=== PATIENT | female | born 1955 ===

== ENCOUNTER 2024-04-24 12:05 | Outpatient (AMB) | payer OTHER, MEDICAID, SELFPAY ==
--- NOTE | 2024-04-24 12:14 | A.OFFPC_ITS ---
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 Allergies No Known Allergies Allergy (Verified 04/24/24 12:19) Medication List - Last Reconciled 04/24/24 by Tejinder Lara MD albuterol sulfate 90 mcg/actuation (Ventolin HFA) 2 puffs inhalation Q4-6H PRN albuterol sulfate 2.5 mg inhalation Q6H atorvastatin 80 mg PO QPM blood sugar diagnostic (Sprout RouteTouch Verio test strips) As directed insulin detemir U-100 (Levemir FlexPen) 40 units subcut DAILY lisinopril 20 mg PO BID metformin 1,000 mg PO BID metoprolol tartrate 50 mg PO BID pen needle, diabetic (BD Ultra-Fine Mini Pen Needle) As directed Tobacco use date assessed: 04/24/24 Fall risk assessment: No Falls in past year Last assessed Fall Risk: 04/24/24 Dental Screening Dental Screen Date: 04/24/24 Did you have a dental visit in the last 12 months?: Yes Did you have a dental problem in the last 6 months where you did not have access to dental care?: No Was dental information given to patient?: Patient has dentist HPI VOLUNTEER MANAGER Annual PE HPI Details Patient is 68-year-old female came in today for establish care visit She moved from [place] where she lived for 40 years Patient [place] [facility] [place] Patient is insulin-dependent diabetic for years She is currently taking long-acting insulin 40 units once a day Patient has not been monitoring her blood sugar as she does not have glucometer We will send that for her Lab order placed to be done fasting Lipid disorder: She is on atorvastatin 80 mg, no side effects Hypertension: Patient is on lisinopril 20 mg once a day and metoprolol 50 mg b.i.d. Blood pressure is well-controlled Patient is due for colonoscopy, she had colonoscopy 5 years ago there was a polyp found It was done in [place] She just had mammogram done last month OBGYN is located with [facility] Eye exam was 6 months ago She will return in 3 months for physical exam. [facility] Social History Housing: House Patient Tobacco Use Status: Never used Tobacco e-Cigarette/Vaping Use: Never Used service: No Current occupational status: unemployed Cognitive needs: No Hearing needs: No Vision needs: Yes Questionnaire PHQ-9 Over the last 2 weeks, how often have you been bothered by any of the following problems? 1. Little interest or pleasure in doing things: not at all 2. Feeling down, depressed, or hopeless: not at all 3. Trouble falling or staying asleep, or sleeping too much: not at all 4. Feeling tired or having little energy: not at all 5. Poor appetite or overeating: not at all 6. Feeling bad about yourself - or that you are a failure or have let yourself or your family down: not at all 7. Trouble concentrating on things, such as reading the newspaper or watching television: not at all 8. Moving or speaking so slowly that other people could have noticed. Or the opposite - being so fidgety or restless that you have been moving around a lot more than usual: not at all 9. Thoughts that you would be better off or of hurting yourself in some way: not at all Total score: 0 Depression Screening Interpretation: Negative Depression Screening Done: Yes 74391 - PHQ-9 Billing: Yes Source: Developed by Drs. Martin Harris, Brook Cunningham, Angel Delarosa and colleagues, with an educational yessica from [employer]. Review of Systems Const Denies chills, Denies fever(s) and Denies headache(s) Eyes Denies blurry vision ENT Denies headache(s), Denies nasal discharge, Denies nasal obstruction, Denies odynophagia and Denies sinus pain Card Denies chest pain at rest and Denies chest pain with activity Resp Denies cough and Denies hemoptysis GI Denies diarrhea, Denies odynophagia, Denies vomiting and Denies hematemesis Reports as per HPI Musc Denies abnormal gait Skin/Breast Reports as per HPI Neuro Denies Neuro-related abnormal movements, Denies Abnormal speech present, Denies abnormal gait, Denies headache(s) and Denies Sensory deficit (Neuro) Psych Denies mood swings and Denies paranoia Endo Reports as per HPI Tres/Lymph Reports as per HPI Aller/Immun Reports as per HPI Physical exam (Primary Care) Vital Signs: Last Vital Signs Pulse 68 04/24/24 12:15 BP 122/74 04/24/24 12:15 Pulse Ox 94 04/24/24 12:15 Oxygen Delivery Method Room Air 04/24/24 12:15 BMI result Body Mass Index 28.3 Tobacco/Smoking Status: Tobacco use Status Tobacco use date assessed 04/24/24 04/24/24 12:19 Patient Tobacco Use Status Never used Tobacco 04/24/24 12:19 e-Cigarette/Vaping Use Never Used 04/24/24 12:19 Depression Screening Interpretation: Negative Const General: cooperative, comfortable and no acute distress Orientation/consciousness: patient oriented x3 HENMT Head: Yes normocephalic and Yes atraumatic Eyes General: appearance normal, both eyes and all related structures Pupils: Equal, round and reactive pupils present EOM: EOMs intact bilaterally Neck Neck: Yes supple and No lymphadenopathy Thyroid: Thyroid normal Lymphatic: no lymphadenopathy noted Resp Effort & Inspection: normal respiratory effort and able to speak in complete sentences Auscultation: clear to auscultation bilaterally Cardio Heart sounds: S1 normal heart sound present and S2 normal heart sound present GI Palpation (GI): Soft to palpation and nontender Auscultation: normal bowel sounds General: Yes no CVA tenderness Back/Spine/Pelvis Back: no CVA tenderness Skin General skin exam: elasticity normal and turgor normal Neuro General: patient oriented x3 and gait normal Cranial nerves: Yes Equal, round and reactive pupils present Speech: No Abnormal speech present Sensory Exam: No Sensory deficit (Neuro) Coordination: tandem gait normal and Romberg test negative Extrem General: Yes normal exam except as noted and No edema Coding Level of Care Code New Pt Level 5 (23008) Diagnoses Establishing care with new doctor, encounter for Z76. Type 1 diabetes mellitus with other specified complication E10.69 Diabetes mellitus complication status: with other specified complication Lipid disorder E78.9 Hypertension, essential I10 Overweight (BMI 25.0-29.9) E66.3 Colon cancer screening Z12.11 Assessment & Plan Assessment & Plan (1) Establishing care with new doctor, encounter for: Code(s): Z76.89 - Persons encountering health services in other specified circumstances Category: Medical (2) Insulin dependent type 1 diabetes mellitus: Code(s): E10.9 - Type 1 diabetes mellitus without complications Category: Medical Qualifiers: Diabetes mellitus complication status: with other specified complication Qualified Code(s): E10.69 - Type 1 diabetes mellitus with other specified complication (3) Lipid disorder: Code(s): E78.9 - Disorder of lipoprotein metabolism, unspecified Category: Medical (4) Hypertension, essential: Code(s): I10 - Essential (primary) hypertension Category: Medical (5) Overweight (BMI 25.0-29.9): Code(s): E66.3 - Overweight Category: Medical (6) Colon cancer screening: Code(s): Z12.11 - Encounter for screening for malignant neoplasm of colon Category: Medical Plan Patient is 68-year-old female came in today for establish care visit Patient is here with her significant other friend, all history taken in front of friend which is also helping with translation She moved from [place] where she lived for 40 years Patient fell in [place] [facility] [place] Patient is insulin-dependent diabetic for years She is currently taking long-acting insulin 40 units once a day Patient has not been monitoring her blood sugar as she does not have glucometer We will send that for her Lab order placed to be done fasting Lipid disorder: She is on atorvastatin 80 mg, no side effects Hypertension: Patient is on lisinopril 20 mg once a day and metoprolol 50 mg b.i.d. Blood pressure is well-controlled Patient is due for colonoscopy, she had colonoscopy 5 years ago there was a polyp found It was done in [place] She just had mammogram done last month OBGYN is located with [facility] Eye exam was 6 months ago She will return in 3 months for physical exam. 60 minute appointment, [id number] with the patient, labs, medications, charting Coordination of care Orders: Orders Microalbumin, Random (w Creat) Today E10.9 - Type 1 diabetes mellitus without complications, E78.9 - Disorder of lipoprotein metabolism, unspecified, I10 - Essential (primary) hypertension, Z76.89 - Persons encountering health services in other specified circumstances Comprehensive [place]. Panel Fast Today E10.9 - Type 1 diabetes mellitus without complications, E78.9 - Disorder of lipoprotein metabolism, unspecified, I10 - Essential (primary) hypertension, Z76.89 - Persons encountering health services in other specified circumstances Vitamin D 25-OH (D2 and D3) Today E10.9 - Type 1 diabetes mellitus without complications, E78.9 - Disorder of lipoprotein metabolism, unspecified, I10 - Essential (primary) hypertension, Z76.89 - Persons encountering health services in other specified circumstances TSH reflex Free T4 Today E10.9 - Type 1 diabetes mellitus without complications, E78.9 - Disorder of lipoprotein metabolism, unspecified, I10 - Essential (primary) hypertension, Z76.89 - Persons encountering health services in other specified circumstances Hemoglobin A1c Today E10.9 - Type 1 diabetes mellitus without complications, E78.9 - Disorder of lipoprotein metabolism, unspecified, I10 - Essential (primary) hypertension, Z76.89 - Persons encountering health services in other specified circumstances Complete Blood Count Auto Diff Today E10.9 - Type 1 diabetes mellitus without complications, E78.9 - Disorder of lipoprotein metabolism, unspecified, I10 - Essential (primary) hypertension, Z76.89 - Persons encountering health services in other specified circumstances Lipid Panel Today E10.9 - Type 1 diabetes mellitus without complications, E78.9 - Disorder of lipoprotein metabolism, unspecified, I10 - Essential (primary) hypertension, Z76.89 - Persons encountering health services in other specified circumstances UA CC w/rflx Micro + Cult Today E10.9 - Type 1 diabetes mellitus without complications, E78.9 - Disorder of lipoprotein metabolism, unspecified, I10 - Essential (primary) hypertension, Z76.89 - Persons encountering health services in other specified circumstances Referrals Gastroenterology Referral Z12.11 - Encounter for screening for malignant neoplasm of colon Medications: New atorvastatin 80 mg PO QPM 90 tabs 0RF metoprolol tartrate 50 mg PO BID 180 tabs 0RF 90 days insulin detemir U-100 (Levemir FlexPen) 40 units (0.4 mL) subcut DAILY 36 mL 0RF 90 days lisinopril 20 mg PO BID 180 tabs 0RF 90 days metformin 1,000 mg PO BID 180 tabs 0RF 90 days
[2024-04-24 12:15] VITALS: BP 122/74; PULSE 68; O2SAT 94; BMI 28.3
== END 2024-04-24 12:49 | disposition home or self-care (01) ==
PROVIDERS: PCP Internal Medicine; Visit Provider Internal Medicine
DX: Z76.89 Persons encountering health services in other specified circumstances (principal); E10.69 Type 1 diabetes mellitus with other specified complication; E78.9 Disorder of lipoprotein metabolism, unspecified; I10 Essential (primary) hypertension; E66.3 Overweight; Z12.11 Encounter for screening for malignant neoplasm of colon

== ENCOUNTER → 2024-04-24 12:05 | Outpatient (BNVA) | payer OTHER, MEDICAID, SELFPAY | PROVIDERS: PCP Internal Medicine; Visit Provider Internal Medicine ==

== ENCOUNTER 2024-04-24 12:50 | Outpatient (REF) | payer OTHER, SELFPAY ==
[2024-04-24 16:23] LABS: MANUAL DIFF FLAG NO
[2024-04-24 16:34] LABS: Basophils Percent Auto 0.5 % (0-2); Eosinophils Absolute Auto 0.1 X10*3/uL (0.0-0.4); Hematocrit 40.1 % (37.0-47.0); Hemoglobin 12.9 g/dl (12.0-16.0); Imm Gran Abs Auto 0.01 X10*3/uL (0.00-0.03); Imm Gran Pct Auto 0.2 % (0.0-0.4); Lymphocytes Absolute Auto 1.6 X10*3/uL (1.2-4.9); Lymphocytes Percent Auto 27.2 % (20-40); Mean Corpuscular HGB Conc 32.2 g/dl (31.0-35.0); Mean Corpuscular Hemoglobin 28.5 pg (27.0-33.0); Mean Corpuscular Volume 88.5 fL (80.0-98.0); Mean Platelet Volume 10.5 fL (9.4-12.3); Monocytes Absolute Auto 0.5 X10*3/uL (0.1-1.2); Monocytes Percent Auto 8.3 % (2-11); Neutrophils Absolute Auto 3.6 x10*3/uL (2.0-8.3); Neutrophils Percent Auto 61.8 % (45-73); Platelet Count 303 X10*3/uL (160-400); Red Blood Count 4.53 X10*6/uL (4.20-5.50); White Blood Count 5.9 X10*3/uL (4.8-10.8)
[2024-04-24 16:47] LABS: Alanine Aminotransferase 25 U/L (0-31); Albumin Level 4.1 g/dL (3.5-5.0); Alkaline Phosphatase 93 U/L (39-117); Anion Gap 13 (12-20); Aspartate Amino Transferase 21 U/L (5-31); Bilirubin Total 0.6 mg/dL (0.0-1.0); Blood Urea Nitrogen 10 mg/dL (9-16); Calcium 9.9 mg/dL (8.4-10.2); Carbon Dioxide 28 mmol/L (22-29); Chloride 103 mmol/L (96-108); Cholesterol 283 mg/dL (<200); Estimated Glomerular Filt Rate > 60; Glucose Fasting 151 mg/dL (60-99); HDL Cholesterol 50 mg/dL (>40); LDL Cholesterol Calculated 182 mg/dL (<100); Potassium 4.5 mmol/L (3.3-5.1); Sodium 139 mmol/L (135-145); Total Protein 7.9 g/dL (6.5-8.0); Triglycerides 257 mg/dL (<150)
[2024-04-24 16:48] LABS: Appearance Urine Clear; Color Urine Yellow; Glucose Urine UA Negative (Negative); Leukocyte Esterase Urine Negative (Negative); Nitrite Urine Negative (Negative); Specific Gravity - Urine 1.015 (1.005-1.025); UMIC TRIGGER UACC YES; Urine Blood Trace (Negative); Urine Ketones Negative (Negative); Urine Protein Negative (Neg-Trace)
[2024-04-24 16:55] LABS: Estimated Average Glucose 163 mg/dL; Hemoglobin A1c % 7.3 % (<6.0); Total Hemoglobin (HGBA1C) 3322.2871 umol/L
[2024-04-24 16:55] LABS: Bacteria Urine None Seen (None Seen); Hyaline Casts Urine 0-2 /LPF (0-2); Squamous Epithelial Cell Urine 0-2 /HPF (0-2); WBC Urine 0-5 /HPF (0-5)
[2024-04-24 17:00] LABS: TSH reflex Free T4 0.75 uIU/mL (0.32-4.0)
[2024-04-24 17:49] LABS: Creatinine Urine 118.96 mg/dL
[2024-04-28 13:08] LABS: Vitamin D 25-OH, D2 <4 ng/mL; Vitamin D 25-OH, D3 28 ng/mL; Vitamin D 25-OH, Total 28 ng/mL (30-100)
== END 2024-04-24 12:51 | disposition home or self-care (01) ==
LOC: HO.HMGCLDS 12:50
PROVIDERS: PCP Internal Medicine; Visit Provider Internal Medicine
DX: E10.9 Type 1 diabetes mellitus without complications (principal); E78.9 Disorder of lipoprotein metabolism, unspecified; I10 Essential (primary) hypertension; Z76.89 Persons encountering health services in other specified circumstances
CPT/HCPCS: 36415; 80053; 80061; 81001; 82043; 82306; 82570; 83036; 84443; 85025

== ENCOUNTER 2024-06-01 11:40 | Outpatient (AMB) | payer OTHER, MEDICAID, SELFPAY ==
--- NOTE | 2024-06-01 11:42 | AM.OFFWIN_ITS ---
Intake Vital Signs 06/01/24 11:48 Height 5 ft 6 in BP 142/80 H Blood Pressure Location Lt brachial Position Sitting Pulse 82 Pulse Source Pulse Oximeter Temp 98.0 F Temp Source Oral Pulse Oximetry (%) 98 Intake Visit Reasons: EP-vertigo Intake Note: pt is here for vertigo Patient Tobacco Use Status: Never used Tobacco Allergies No Known Allergies Allergy (Verified 06/01/24 11:50) HPI HPI Comments History of Present Illness Details The patient is a 69-year-old female presenting with dizziness. The dizziness began yesterday afternoon and was accompanied by a very light he adache. The sensation included a feeling as if the room was spinning. The onset occurred when the patient was in bed and leaned over to sampler pickup her phone. There was no associated nausea or vomiting, although there was initial nausea which resolved. The patient has not experienced these symptoms before. She attempted to manage the headache with Aleve, in addition to her regular medications, lisinopril and metoprolol, taken for hypertension. There is no history of ear infections, visual or auditory changes, or allergies. The dizziness persisted from the onset through the present consultation, leading the patient to seek medical advice. Patient's boyfriend was here interpreting for her as she is [place] Citizen-speaking [facility] Social History Housing: House Patient Tobacco Use Status: Never used Tobacco e-Cigarette/Vaping Use: Never Used service: No Current occupational status: unemployed Cognitive needs: No Hearing needs: No Vision needs: Yes Review of Systems Const All systems reviewed & are unremarkable except as noted in HPI and below Physical Exam Vital Signs: Last Vital Signs Temp 98.0 F 06/01/24 11:48 Pulse 82 06/01/24 11:48 BP 142/80 H 06/01/24 11:48 Pulse Ox 98 06/01/24 11:48 Const General: cooperative, healthy appearing, comfortable and no acute distress Orientation/consciousness: patient oriented x3 HEENT Head: Yes normal to inspection Ears: mastoids normal, Abnormal EAC present cerumen impaction and unable to visualize TM (cerumen blockage) diffuse General nose exam: Normal external nose present Face and sinus: Yes normal facial exam Resp Effort & Inspection: normal respiratory effort and able to speak in complete sentences Neuro General: patient oriented x3 Office Procedures Cerumen Removal From which ear canal was the cerumen removed: bilateral Removal: irrigation Notes: patient tolerated procedure well, no complications and ear canal clear [id number] Irrigation/Lavage Assessment & Plan Assessment & Plan (1) Dizziness: Code(s): R42 - Dizziness and giddiness Plan: - Dizziness: MA Performed aural irrigation to remove earwax as excessive cerumen may affect balance. Instruct the patient to notify the medical office receptionist if dizziness worsens or there is any pain during the procedure. Assess for symptomatic improvement following ear irrigation. Patient feeling a little bit better but still a little dizzy. Sent a few meclizine for patient, to help with her symptoms until things settle down with her ears. - Headache: Re-evaluate headache status post-earwax removal and monitor for changes. Continue blood pressure medications as prescribed, as dizziness and headaches could be related to blood pressure control. - Hypertension: Blood pressure today is 142/80. Continue with current antihypertensive medication regimen lisinopril and metoprolol as prescribed. Monitor blood pressure regularly. - advised patient if her symptoms get worse or she has nausea or vomiting or a worsening headache that she can not control with Tylenol or ibuprofen, she should go to the emergency room for further evaluation. (2) Bilateral impacted cerumen: Code(s): H61.23 - Impacted cerumen, bilateral Plan: see above Medications: New meclizine 25 mg PO BID PRN 10 tabs 0RF dizziness Coding Level of Care Code Est Pt Level 4 (27717) Diagnoses Dizziness R42 Bilateral impacted cerumen H61.23 CPT Codes Office Procedure - CPT: 49074-Qpu Irrigation/Lavage ([id number])
[2024-06-01 11:48] VITALS: BP 142/80; PULSE 82; TEMP 36.7; O2SAT 98
== END 2024-06-01 12:50 | disposition home or self-care (01) ==
PROVIDERS: PCP Internal Medicine; Visit Provider Physician Assistant
DX: R42 Dizziness and giddiness (principal); H61.23 Impacted cerumen, bilateral

== ENCOUNTER → 2024-06-01 11:40 | Outpatient (BNVA) | payer OTHER, MEDICAID, SELFPAY | PROVIDERS: PCP Internal Medicine; Visit Provider Physician Assistant | DX: R42 Dizziness and giddiness (principal); H61.23 Impacted cerumen, bilateral | CPT/HCPCS: 69209 ==

== ENCOUNTER 2024-07-24 10:42 | Outpatient (REF) | payer OTHER, MEDICAID, SELFPAY ==
--- NOTE | ~2024-07-24 | MM_ITS ---
EXAMINATION: Dual-Energy X-ray Absorptiometry - Bone Density Study HISTORY: Estrogen deficiency TECHNIQUE: [place] Dual energy absorptiometry (DEXA) of the lumbar spine, total left hip, and femoral neck was performed. COMPARISON: There are no prior studies for comparison. FINDINGS: The bone mineral density of the lumbar spine is 1.017 with a T-score of -1.4, and a Z-score of -0.1. The bone mineral density of the left total hip is 0.774 with a T-score of -1.9, and a Z-score of -0.7. The bone mineral density of the left femoral neck is 0.773 with a T-score of -1.9, and a Z-score of -0.5. FRACTURE RISK: The FRAX index suggests a risk of major osteoporotic fracture of 6.4%, and of hip fracture 1.2%. MM/XR DEXA axial skeleton IMPRESSION: Based on bone mineral density, and according to World Health Organization (WHO) criteria, the diagnosis is consistent with osteopenia. All bone density values are in grams per centimeter squared. At this facility, the least significant change in BMD with 95% confidence is 0.022 at the lumbar spine, 0.027 at the hip, and 0.023 at the distal 1/3 radius. Electronically signed by: Martin Scott MD 07/25/2024 09:[address] [facility]
== END 2024-07-24 10:43 | disposition home or self-care (01) ==
LOC: HO.MAMMO 10:42
PROVIDERS: PCP Internal Medicine; Visit Provider Internal Medicine
DX: Z13.820 Encounter for screening for osteoporosis (principal); Z78.0 Asymptomatic menopausal state
CPT/HCPCS: 77080

== ENCOUNTER → 2024-07-24 11:00 | Outpatient (BNV) | payer OTHER, MEDICAID, SELFPAY | PROVIDERS: PCP Internal Medicine; Visit Provider Radiology Diagnostic Radiology | DX: Z78.0 Asymptomatic menopausal state (principal) | CPT/HCPCS: 77080 ==

== ENCOUNTER 2024-07-27 10:16 | Outpatient (REF) | payer OTHER, MEDICAID, SELFPAY ==
[2024-07-27 13:14] LABS: MANUAL DIFF FLAG NO
[2024-07-27 13:16] LABS: Basophils Percent Auto 0.5 % (0-2); Eosinophils Absolute Auto 0.2 X10*3/uL (0.0-0.4); Eosinophils Percent Auto 2.7 % (0-4); Hematocrit 40.5 % (37.0-47.0); Hemoglobin 13.2 g/dl (12.0-16.0); Imm Gran Abs Auto 0.01 X10*3/uL (0.00-0.03); Imm Gran Pct Auto 0.2 % (0.0-0.4); Lymphocytes Absolute Auto 2.1 X10*3/uL (1.2-4.9); Mean Corpuscular HGB Conc 32.6 g/dl (31.0-35.0); Mean Corpuscular Hemoglobin 28.8 pg (27.0-33.0); Mean Corpuscular Volume 88.4 fL (80.0-98.0); Mean Platelet Volume 10.4 fL (9.4-12.3); Monocytes Absolute Auto 0.5 X10*3/uL (0.1-1.2); Monocytes Percent Auto 8.6 % (2-11); Neutrophils Absolute Auto 3.1 x10*3/uL (2.0-8.3); Platelet Count 314 X10*3/uL (160-400); Red Blood Count 4.58 X10*6/uL (4.20-5.50); Red Cell Distribution Width 13.2 % (11.0-16.0); White Blood Count 5.9 X10*3/uL (4.8-10.8)
[2024-07-27 13:26] LABS: Estimated Average Glucose 157 mg/dL; Hemoglobin A1C 185.3277 umol/L; Hemoglobin A1c % 7.1 % (<6.0); Total Hemoglobin (HGBA1C) 3422.1902 umol/L
[2024-07-27 13:55] LABS: Creatinine Urine 463.91 mg/dL; Microalbum/Creatinine Ratio Ur 7.7 ug/mg cr (<30)
[2024-07-27 14:03] LABS: Alanine Aminotransferase 23 U/L (0-31); Alkaline Phosphatase 106 U/L (39-117); Anion Gap 10 (12-20); Aspartate Amino Transferase 23 U/L (5-31); Bilirubin Total 0.5 mg/dL (0.0-1.0); Blood Urea Nitrogen 11 mg/dL (9-16); Calcium 8.7 mg/dL (8.4-10.2); Carbon Dioxide 27 mmol/L (22-29); Chloride 108 mmol/L (96-108); Estimated Glomerular Filt Rate > 60; Glucose Random 176 mg/dL (60-115); Potassium 4.2 mmol/L (3.3-5.1); Sodium 141 mmol/L (135-145); Total Protein 8.1 g/dL (6.5-8.0)
[2024-07-30 05:19] LABS: LDL Cholesterol Direct 219 mg/dL (<100)
== END 2024-07-27 10:17 | disposition home or self-care (01) ==
LOC: HO.HMGCLDS 10:16
PROVIDERS: PCP Internal Medicine; Visit Provider Internal Medicine
DX: E10.69 Type 1 diabetes mellitus with other specified complication (principal); E78.9 Disorder of lipoprotein metabolism, unspecified; I10 Essential (primary) hypertension; E66.3 Overweight; Z68.28 Body mass index [BMI] 28.0-28.9, adult; R42 Dizziness and giddiness; R06.2 Wheezing; Z79.4 Long term (current) use of insulin; Z79.84 Long term (current) use of oral hypoglycemic drugs; Z79.899 Other long term (current) drug therapy
CPT/HCPCS: 36415; 80053; 82043; 82570; 83036; 83721; 85025; 96127

== ENCOUNTER 2024-07-27 10:16 | Outpatient (AMB) | payer OTHER, MEDICAID, SELFPAY ==
[2024-07-27 10:22] VITALS: BP 132/80; PULSE 82; O2SAT 96; BMI 28.2
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
== END 2024-07-27 10:44 | disposition home or self-care (01) ==
PROVIDERS: PCP Internal Medicine; Visit Provider Internal Medicine
DX: E10.69 Type 1 diabetes mellitus with other specified complication (principal); E78.9 Disorder of lipoprotein metabolism, unspecified; I10 Essential (primary) hypertension; E66.3 Overweight; R42 Dizziness and giddiness; R06.2 Wheezing

== ENCOUNTER 2024-08-17 13:00 | Outpatient (RCR) | payer OTHER, MEDICAID, SELFPAY ==
[2024-08-07 13:18] VITALS: BP 132/80; PULSE 70; O2SAT 96
--- NOTE | 2024-09-14 13:58 | MHC.PT.DC ---
[facility] [place] Office [place] Office [place] Office [address] Cuellar [address] [phone] F: [phone] F: [phone] F: [phone] F: [phone] Physical Therapy Discharge Report Diagnosis: This is a 69 yo female presenting to skilled PT with a script for vertigo. Date of Surgery: Date of Evaluation: 08/07/24 Date of Discharge: 09/14/24 Treatments to Date: 3 Cancellations to Date: 0 No Shows to Date: 0 Discharge Status: Achieved Goals Improved Function Independent with HEP Discharge Summary: 08/17: Patient was negative in all 6 canals. She has returned to normal ADLs, driving and ambulation. I educated her that if her symptoms continue to remain good over the weekend to call an cancel on Tuesday otherwise her chart will be closed in 30 days. Electronically signed by: Kiki Murray PT Please sign and return to therapist. Thank you for your referral.
== END 2024-09-14 13:58 | disposition home or self-care (01) ==
LOC: HO.PTCHIC 13:00
PROVIDERS: PCP Internal Medicine; Visit Provider Internal Medicine
DX: H81.10 Benign paroxysmal vertigo, unspecified ear (principal)
CPT/HCPCS: 95992; 97110; 97162

== ENCOUNTER 2024-09-05 10:53 | Outpatient (REF) | payer OTHER, MEDICAID, SELFPAY ==
[2024-09-05 09:49] VITALS: PULSE 76; O2SAT 96
--- NOTE | 2024-09-05 10:56 | PFT_ITS ---
Flows: FEV1: 93 % of predicted at 2.19 L FVC: 90 % of predicted at 2.75 L FEV1/FVC: 79 % Bronchodilator response: Absent Volumes: Total lung capacity: 83 % of predicted at 4.42 L Residual volume: 80 % of predicted at 1.67 L Slow vital capacity: 86 % of predicted at 2.75 L Expiratory reserve volume: 26 % of predicted at 0.21 L Diffusion capacity: Normal Impression: No obstructive or restrictive ventilatory defect. No bronchodilator response. Decreased expiratory reserve volume suggests extrathoracic restriction likely secondary to abdominal obesity. MTDD
--- OUTSIDE RECORDS SUMMARY | 2024-09-05 13:34 | XMS_ITS | Encounter Summary ---
Author Organization [facility] [address] Address [address] [place] [address] Care Team Providers Care Career Technical Education Instructor Name Role Phone Tejinder Lara MD Primary Care Provider [phone] Encounter Details Date Type Department Care Team (Late Contact Info) Description 05/15/[address] [facility] - Main Lab [address] [facility] [place] [phone] Martine Gallagher MD [address] [facility] [address] [place] [phone] Encounter for general adult medical examination without abnormal findings Social History Tobacco Use Types Packs/Day Years Used Date Smoking Tobacco: Never Assessed Comments Unknown Sex and Gender Information Value Date Recorded Sex Assigned at Female 08/07/2024 12:05 AM EST Legal Sex Female 11:39 AM EDT Gender Identity Female 08/07/2024 12:05 AM EST Sexual Orientation Straight 08/07/2024 12 :05 AM EST documented as of this encounter Plan of Treatment Upcoming Encounters Date Type Department Care Team (Late Contact Info) Description 02/13/2025 11:00 AM EDT Office Visit Adult Medicine [address] [address] Hodan Crow MD [address] [place] [address] documented as of this encounter Visit Diagnoses Diagnosis Encounter for general adult medical examination without abnormal findings documented in this encounter Care Teams Career Technical Education Instructor Relationship Specialty Start Date End Date Tejinder Lara MD [address] [place] [phone] PCP - General Internal Medicine 06/12/24 documented as of this encounter
--- OUTSIDE RECORDS SUMMARY | 2024-09-05 13:34 | XMS_ITS | Encounter Summary ---
Author Organization [facility] Address [address] [place] [address] Care Team Providers Care Customer Business Manager Name Role Phone Tejinder Lara MD Primary Care Provider [phone] Encounter Details Date Type Department Care Team (Latest Contact Info) Description 05/15/2024 Lab Requisition [facility] - Main Lab [address] [facility] [place] [address] Martine Gallagher MD 299 [facility] [address] [place] [phone] Encounter for gynecological examination (general) (routine) without abnormal findings Social History Tobacco Use [...] Encounters Date Type Department Care Team (Late st Contact Info) Description 02/13/2025 11:00 AM EDT Office Visit Adult Medicine [address] [phone] Hodan Crow MD [address] [place] [address] documented as of this encounter Procedures Procedure Name Priority Date/Time Associated Diagnosis Comments PAP SMEAR Routine 05/14/2024 Encounter for gynecological examination (general) (routine) without abnormal findings documented in this encounter Results * Pap smear (05/14/2024) Interpretation Negative for intraepithelial lesion or malignancy 05/17/2024 2:20 PM EST [facility] General Categorization Negative 05/17/2024 2:20 PM EST [facility] Other Findings Shift in susan suggestive of bacterial vaginosis 05/17/2024 2:20 PM [facility] Specimen Adequacy Satisfactory for evaluation 05/17/2024 2:20 PM EST [facility] Pap Methodology Liquid Based Pap Test 05/17/2024 2:20 PM EST [facility] Disclaimer The Pap test is a screening test which carries an inherent false negative rate. These test results should be correlated with the patient's clinical findings and history. Technical cytopathology services provided by [facility], at [address] [place] [id number] (CLIA # [id number]/Dayana Pacheco MD, [employer] [facility] [employer].) 05/17/2024 2:20 PM EST [facility] Console Pap Interpretation Reported 05/17/2024 2:20 PM EST [facility] Brushing/Spatula Vaginal structure / Unknown 05/14/2024 05/15/2024 1:43 PM EST us Martine Gallagher MD LAB CYTOLOGY ORDERABLES Final Result [facility] [address] [place] [address], documented in this encounter Visit Diagnoses Diagnosis Encounter for gynecological examination (general) (routine) without abnormal findings documented in this encounter Care Teams Customer Business Manager Relationship Specialty Start Date End Date Tejinder Lara MD [address] [place] [address] PCP - General Internal Medicine 06/12/24 documented as of this encounter
--- OUTSIDE RECORDS SUMMARY | 2024-09-05 13:34 | XMS_ITS | Clinical Summary ---
Author Organization [employer] Address [address] [place] [address] [address] [place] [address] Care Team Providers Care Business Continuity Analyst Name Role Phone Unavailable Primary Care Provider Unavailabl e Social History Tobacco Use Types Packs/Day Years Used Date Smoking Tobacco: Never Assessed Comments Unknown Sex and Gender Information Value Date Recorded Sex Assigned at Female 01/24/2024 1:21 PM EDT Legal Sex Female 1:20 PM EDT Gender Identity Female 01/24/2024 1:21 PM EDT Sexual Orientation Not on file Plan of Treatment Health Maintenance Due Date Last Done Comments CT Colonography 1954 Colonoscopy 1954 Colorectal Cancer Screening 1954 Depression Screening 1954 FIT DNA/Cologuard 1954 FIT 1954 FOBT 1954 SDOH Screening 1954 Sigmoidoscopy 1954 Alcohol/Substance Use Screening 1966 Tobacco Screening 1966 Hepatitis C Screening 1972 DTaP/Tdap/Td Vaccines (1 - Tdap) 1973 Mammogram 1994 Pneumococcal Vaccine: 50+ Ye ars (1 of 1 - PCV) 2004 Zoster Vaccines (1 of 2) 2004 COVID-19 Vaccine ( - 2023-2 5 season) 2024 Influenza Vaccine (#1) 2024 RSV Patients and Pa tients Aged 60 years or older (1 - 1-dose 75+ series) 2029 HIB Vaccines Aged Out No longer eligi ble based on patient's age to complete this topic HPV Vaccines Aged Out No longer eligi ble based on patient's age to complete this topic Hepatitis A Vaccines Aged Out No long er eligible based on patient's age to complete this topic Hepatitis B Vaccines Aged Out No long er eligible based on patient's age to complete this topic IPV Vaccines Aged Out No longer eligi ble based on patient's age to complete this topic Meningococcal Vaccine Aged Out No mane adela eligible based on patient's age to complete this topic RSV under 20 months Aged Out No longe r eligible based on patient's age to complete this topic Rotavirus Vaccines Aged Out No longer eligible based on patient's age to complete this topic Insurance [facility]UAL [facility]PLETE
--- OUTSIDE RECORDS SUMMARY | 2024-09-05 13:34 | XMS_ITS | Clinical Summary ---
Author Organization [address] [facility] Address [address] [place] [phone] Phone Care Team Providers Care Indigo Vat Tender Cloth Name Role Phone Tejinder Lara MD Primary Care Provider Allergies Active Allergy Reactions Criticality Noted Date Comments Diphenhydramine Hcl Anxiety Low 06/02/2024 Medications No known medications Active Problems No known active problems Surgical History Surgery Date Site/Laterality Comments STENT PLACEMENT Medical History Medical History Date Comments Diabetes (CMS/HCC) Hyperlipidemia Social History Tobacco Use Types Packs/Day Years Used Date Smoking Tobacco: Never Smokeless Tobacco: Never Tobacco Cessation:Counseling Given: Not Answered Alcohol Use Standard Drinks/Week Comments Yes 0 (1 standard drink = 0.6 oz pure alcohol) Pt states she drinks only socially Comments Unknown Sex and Gender Information Value Date Recorded Sex Assigned at Female 08/07/2024 12:05 AM EST Legal Sex Female 11:39 AM EDT Gender Identity Female 08/07/2024 12:05 AM EST Sexual Orientation Straight 08/07/2024 12 :05 AM EST Obstetrics History Last Filed Vital Signs Vital Sign Reading Time Taken Comments Blood Pressure 157/70 06/02/2024 6:28 PM EST Pulse 55 06/02/2024 6:28 PM EST Temperature 37 ??C (98.6 ??F) 06/02/2024 3:57 PM EST Respiratory Rate 18 06/02/2024 6:28 PM EST Oxygen Saturation 98% 06/02/2024 6:28 PM EST Inhaled Oxygen Concentration - - Weight 77.1 kg (170 lb) 06/02/2024 3:57 PM EST Height 167.6 cm (5' 6 ) 06/02/2024 3:57 PM EST Body Mass Index 27.44 06/02/2024 3:57 PM EST Plan of Treatment Upcoming Encounters Date Type Department Care Team (Late st Contact Info) Description 02/13/2025 11:00 AM EDT Office Visit Adult Medicine [facility] [address] [place] [address] Hodan Crow MD [address] [place] [address] Health Maintenance Due Date Last Done Comments Breast Cancer Screening 1955 DTaP,Tdap,and Td Vaccines (1 - Tdap) 1973 Pneumococcal Vaccine: 50+ Ye ars (1 of 1 - PCV) 2004 Zoster Vaccines (1 of 2) 2004 COVID-19 Vaccine ( - 2023-2 5 season) 2024 Influenza Vaccine (#1) 2024 Cholesterol Screening (Lipid Panel) 05/05/2024 Colorectal Cancer Screening: Colonoscopy 05/05/2024 Depression Screening 05/05/2024 Falls Risk Assessment 05/05/2024 Hepatitis C Screening 05/05/2024 Medicare Annual Wellness Visit 05/05/2024 Osteoporosis Screening (Bone Density Screening) 05/05/2024 Social Influencers of Health Screening 05/05/2024 Hypertension/CHF/CAD Annual BMP Blood Test 06/02/2025 06/02/2024 RSV Immunization Patients 60 + Years Old (1 - 1-dose 75+ series) 2029 HIB [...] on patient's age to complete this topic MMR Vaccines Aged Out No longer eligi ble based on patient's age to complete this topic Meningococcal ACWY Vaccine Aged Out N o longer eligible based on patient's age to complete this topic Meningococcal B Vacine Aged Out No lo nger eligible based on patient's age to complete this topic RSV Immunization Patients Un radha 20 months Aged Out No longer eligible b ased on patient's age to complete this topic Varicella Vaccines Aged Out No longer eligible based on patient's age to complete this topic Procedures Procedure Name Priority Date/Time Associated Diagnosis Comments BASIC METABOLIC PANEL STAT 06/02/2024 4:19 PM EST from Last 3 Months or Most Recently Relevant to Health Maintenance Results * (ABNORMAL) Basic metabolic panel (06/02/2024 4:19 PM EST) Sodium 141 133 - 145 mmol/L LAB CHEMISTRY METHOD 06/02/2024 5:03 PM [facility] Potassium 4.3 3.5 - 5.5 mmol/L LAB CHEMISTRY METHOD 06/02/2024 5:03 PM [facility] Chloride 108 96 - 110 mmol/L LAB CHEMISTRY METHOD 06/02/2024 5:03 PM [facility] CO2 28 21 - 32 mmol/L LAB CHEMISTRY METHOD 06/02/2024 5:03 PM [facility] Anion Gap 5 3 - 11 LAB CHEMISTRY METHOD 06/02/2024 5:03 PM [facility] Glucose 112(H) 70 - 100 mg/dL LAB CHEMISTRY METHOD 06/02/2024 5:03 PM [facility] BUN 12 5 - 25 mg/dL LAB CHEMISTRY METHOD 06/02/2024 5:03 PM [facility] Creatinine 0.72 0.50 - 1.10 mg/dL LAB CHEMISTRY METHOD 06/02/2024 5:03 PM [facility] eGFR 90 >=60 mL/min/1. 73m2 LAB CHEMISTRY METHOD 06/02/2024 5:03 PM [facility] Comment:Calculation based on the??Chronic Kidney Disease Epidemiology Collaboration (CKD-EPI) equation refit??without adjustment for race. BUN/Creatinine Ratio 16.7 LAB CHEMISTRY METHOD 06/02/2024 5:03 PM EST [facility] Calcium 9.4 8.5 - 10.5 mg/dL LAB CHEMISTRY METHOD 06/02/2024 5:[address] [facility] Blood Venous blood specimen / Unknown Venipuncture / Unknown 06/02/2024 4:19 PM EST 06/02/2024 4:25 PM EST us Eric Garett Adrian MD LAB BLOOD ORDERABLES Final Resu lt [facility] [address] [place] [address], [place] [phone] from Last 3 Months or Most Recently Relevant to Health Maintenance Insurance * Guarantor: Guru Simpson Account Type Relation to Patient Date of Phone Billing Address Personal/Family Self 1955 [address] [facility] [address] [place] [id number] MEDICAID - [place] [employer] MEDICARE * Guarantor: Guru Simpson Account Type Relation to Patient Date of Phone Billing Address Personal/Family Self 1955 [address] [facility] [address] [place] [address] Care Teams Indigo Vat Tender Cloth Relationship Specialty Start Date End Date Tejinder Lara MD [address] [place] [address] PCP - General Internal Medicine 06/12/24
== END 2024-09-05 10:54 | disposition home or self-care (01) ==
LOC: HO.RESP 10:53
PROVIDERS: PCP Internal Medicine; Visit Provider Internal Medicine
DX: R06.2 Wheezing (principal)
CPT/HCPCS: 94010; 94640; 94727; 94729

== ENCOUNTER → 2024-09-05 10:56 | Outpatient (BNV) | payer OTHER, MEDICAID, SELFPAY | PROVIDERS: PCP Internal Medicine; Visit Provider Internal Medicine Pulmonary Disease | DX: R06.2 Wheezing (principal) | CPT/HCPCS: 94060; 94727; 94729 ==

== ENCOUNTER 2024-09-20 09:50 | Outpatient (AMB) | payer OTHER, MEDICAID, SELFPAY ==
--- NOTE | 2024-09-20 09:57 | A.OFFVIS_ITS ---
Vital Signs 09/20/24 10:17 Height 5 ft 6 in Weight 176 lb 12.972 oz BMI 28.5 BP 142/76 H Blood Pressure Location Rt brachial Position Sitting Pulse 64 Pulse Source Pulse Oximeter Pulse Oximetry (%) 97 Oxygen Delivery Method Room Air Intake Visit Reasons: Colonoscopy screening Intake Note: NEW PATIENT for recall colo, possible 3rd lifetime. Last 5 years ago via [facility] in [place]. Chief Complaint; No GI concerns at this time. Pt provided documentation from previous colo which was scanned into chart and tasked to provider. Fiberglass Dowel Drawing Operator Required: Yes Fiberglass Dowel Drawing Operator Services: Fiberglass Dowel Drawing Operator Offered & Declined Accompanied by: Spouse Allergies No Known Allergies Allergy (Verified 09/20/24 09:57) HPI HPI Colonoscopy screening: Details: 69 year old? female with past medical history of asthma, hyperlipidemia, diabetes, hypertension is here today for pre colonoscopy screening.? Patient was sent to us by her PCP.? Last colonoscopy in 2018, 2 small benign polyps without high-grade dysplasia or carcinoma. Recommendation was made for 5 years.? Patient denies any gastrointestinal symptoms in the past or at present.? Denies any personal or family history of gastrointestinal disease or CRC.? Denies history of difficulty with sedation or anesthesia in the past.? Negative for history of sleep apnea.? Denies any history of cardiac, renal, pulmonary, or hepatic disease.?? No history of infectious? diseases like hepatitis A, B, C, HIV or tuberculosis.? Patient is not on any anticoagulation [facility] Surgical History H/O colonoscopy (~2017) History of heart artery stent (~2014) History of hysterectomy (~1997) Social History Housing: House Patient Tobacco Use Status: Never used Tobacco e-Cigarette/Vaping Use: Never Used service: No Current occupational status: unemployed Cognitive needs: No Hearing needs: No Vision needs: Yes Review of Systems Const Denies weight gain and Denies weight loss ENT Reports no additional complaints, Denies dysphagia and Denies odynophagia Card Reports no additional complaints Resp Reports no additional complaints GI Denies abdominal pain, Denies belching, Denies melena, Denies bloating, Denies change in bowel habits, Denies dysphagia, Denies excessive flatus, Denies dyspepsia, Denies heartburn, Denies diarrhea, Denies loose stools, Denies nausea, Denies odynophagia and Denies vomiting Musc Reports no additional complaints Neuro Reports no additional complaints Psych Reports no additional complaints Endo Reports no additional complaints Physical Exam Const General: healthy appearing, no acute distress and well developed Nutritional Appearance: well nourished Orientation/consciousness: patient oriented x3 Resp Effort & Inspection: normal respiratory effort, able to speak in complete sentences, no tracheal deviation and symmetric chest movement Auscultation: clear to auscultation bilaterally Cardio Rate: regular rate GI Inspection: Yes normal to inspection and No distended Palpation (GI): Soft to palpation, not firm, nontender and No hepatosplenomegaly present Auscultation: normal bowel sounds General: Yes no CVA tenderness Back/Spine/Pelvis Back: no CVA tenderness Skin General skin exam: elasticity normal, turgor normal and dry skin Neuro General: patient oriented x3 Psych Appearance: grossly normal Mental Status: mental status grossly normal Assessment & Plan Assessment & Plan (1) Colon cancer screening: Code(s): Z12.11 - Encounter for screening for malignant neoplasm of colon Category: Medical Plan Patient denies any GI, cardiac or respiratory symptoms.? Denies any issues with anesthesia in the past.? Denies any history of sleep apnea.? No history infecti ous diseases in the past or present.? Not on any anticoagulation therapy.? No family or personal history of colon cancer. Patient is on long-acting insulin every evening 40 units. Patient will take 20 units 2 nights and 1 night before the procedure.? Patient denies melena, hematochezia, unintentional weight loss or ribbon like stools.? Discussed at length the pre-procedure,? prep, diet & medications as well as what to expect prior, during and after the procedure.?? Stressed the importance of good bowel prep.? Recommended the use of Vaseline or Calmoseptine OTC & baby wipes with bowel movements to promote comfort.? ?Patient verbalizes understanding and agrees to plan of care.? She was given the opportunity to ask questions and all questions answered.? We will see her after the procedure.? Medications: New polyethylene glycol 3350 (Miralax) As directed by gastro[facility]ology department at [facility] 238 grams PO ONCE 238 grams 0RF Z12.11 - Encounter for screening for malignant neoplasm of colon bisacodyl (Dulcolax (bisacodyl)) take 4 tabs at noon the day before your colonoscopy 20 mg (4 x 5 mg) PO ONCE 1 day 4 tabs 0RF constipation Z12.11 - Encounter for screening for malignant neoplasm of colon Coding Level of Care Code New Pt Level 3 (31946) Diagnoses Colon cancer screening Z12.11 Time Spent (min) 40 Comment 30 minutes spent with patient and additional 10 minutes spent reviewing her records
[2024-09-20 10:17] VITALS: BP 142/76; PULSE 64; O2SAT 97; BMI 28.5
--- OUTSIDE RECORDS SUMMARY | 2024-09-20 12:00 | XMS_ITS | Encounter Summary ---
Author Organization [facility] Address [address] [place] [address] Care Team Providers Care Retail Sales Merchandiser Name Role Phone Tejinder Lara MD Primary Care Provider [phone] Encounter Details Date Type Department Care Team (Late Contact Info) Description 05/15/2024 Lab Requisition [facility] - Main Lab [address] [facility] [place] [phone] Martine Gallagher MD 299 [facility] [address] [place] [phone] Encounter for general adult medical examination without [...] 11:00 AM EDT Office Visit Adult Medicine [address] [address] Hodan Crow MD [address] [place] [address] documented as of this encounter Visit Diagnoses Diagnosis Encounter for general adult medical examination without abnormal findings documented in this encounter Care Teams Retail Sales Merchandiser Relationship Specialty Start Date End Date Tejinder Lara MD [address] [place] [address] PCP - General Internal Medicine 06/12/24 documented as of this encounter
--- OUTSIDE RECORDS SUMMARY | 2024-09-20 12:00 | XMS_ITS | Clinical Summary ---
Author Organization [address] [facility] Address [address] [place] [address] Phone Care Team Providers Care Dental Office Coordinator Name Role Phone Tejinder Lara MD Primary Care Provider [phone] Allergies Active Allergy Reactions Criticality Noted Date [...] 11:00 AM EDT Office Visit Adult Medicine [facility] [address] [place] [address] Hodan Crow MD [address] [place] [address] Health Maintenance Due Date Last Done Comments [...] mmol/L LAB CHEMISTRY METHOD 06/02/2024 5:[address] [facility] Potassium 4.3 3.5 - 5.5 mmol/L LAB CHEMISTRY METHOD 06/02/2024 5:[address] [facility] Chloride 108 96 - 110 mmol/L LAB CHEMISTRY METHOD 06/02/2024 5:[address] [facility] CO2 28 21 - 32 mmol/L LAB CHEMISTRY METHOD 06/02/2024 5:[address] [facility] Anion Gap 5 3 - 11 LAB CHEMISTRY METHOD 06/02/2024 5:[address] [facility] Glucose 112(H) 70 - 100 mg/dL LAB CHEMISTRY METHOD 06/02/2024 5:[address] [facility] BUN 12 5 - 25 mg/dL LAB CHEMISTRY METHOD 06/02/2024 5:[address] [facility] Creatinine 0.72 0.50 - 1.10 mg/dL LAB CHEMISTRY METHOD 06/02/2024 5:[address] [facility] eGFR 90 >=60 mL/min/1. 73m2 LAB CHEMISTRY METHOD 06/02/2024 5:[address] [facility] Comment:Calculation based on the??Chronic Kidney Disease Epidemiology Collaboration (CKD-EPI) equation refit??without adjustment for race. BUN/Creatinine Ratio 16.7 LAB CHEMISTRY METHOD 06/02/2024 5:03 PM EST [facility] Calcium 9.4 8.5 - 10.5 mg/dL LAB CHEMISTRY METHOD 06/02/2024 5:03 PM EST [facility] Blood Venous blood specimen / Unknown Venipuncture / Unknown 06/02/2024 4:19 PM EST 06/02/2024 4:25 PM EST us Eric Garett Adrian MD LAB BLOOD ORDERABLES Final Resu lt [facility] [address] [place] [address], [place] [phone] from Last 3 Months or Most Recently Relevant to Health Maintenance Insurance * Guarantor: Guru Simpson Account Type Relation to Patient Date of Phone Billing Address Personal/Family Self 1955 [address] [facility] [address] [place] [phone] MEDICAID [place] UNITED [employer]ARE MEDICARE * Guarantor: Guru Simpson Account Type Relation to Patient Date of Phone Billing Address Personal/Family Self 1955 [address] [facility] [address] [place] [address] Care Teams Dental Office Coordinator Relationship Specialty Start Date End Date Tejinder Lara MD [address] [place] [address] PCP - General Internal Medicine 06/12/24
--- OUTSIDE RECORDS SUMMARY | 2024-09-20 12:00 | XMS_ITS | Encounter Summary ---
Author Organization [facility] Address [address] [place] [address] Care Team Providers Care Outside Sales Professional Name Role Phone Tejinder Lara MD Primary Care Provider [phone] Encounter Details Date Type Department Care Team (Latest Contact Info) Description 05/15/2024 Lab Requisition [facility] - Main Lab [address] [facility] [place] [address] Martine Gallagher MD 299 [facility] [address] [place] [phone] Encounter for gynecological examination (general) (routine) without [...] 11:00 AM EDT Office Visit Adult Medicine [address] [address] Hodan Crow MD [address] [place] [address] documented as of this encounter Procedures Procedure Name Priority Date/Time Associated Diagnosis Comments PAP SMEAR Routine 05/14/2024 Encounter for gynecological examination (general) (routine) without abnormal findings documented in this encounter Results * Pap smear (05/14/2024) Interpretation Negative for intraepithelial lesion or malignancy 05/17/2024 2:20 PM EST [facility] General Categorization Negative 05/17/2024 2:20 PM EST [facility] Other Findings Shift in susan suggestive of bacterial vaginosis 05/17/2024 2:20 PM [facility] Specimen Adequacy Satisfactory for evaluation 05/17/2024 2:20 PM EST [facility] Pap Methodology Liquid Based Pap Test 05/17/2024 2:20 PM EST [facility] Disclaimer The Pap test is a screening test which carries an inherent false negative rate. These test results should be correlated with the patient's clinical findings and history. Technical cytopathology services provided by [facility], at [address] [place] [id number] (CLIA # [id number]/Dayana Pacheco MD, Wireless Sales Manager.) 05/17/2024 2:20 PM EST [facility] Console Pap Interpretation Reported 05/17/2024 2:20 PM EST [facility] Brushing/Spatula Vaginal structure / Unknown 05/14/2024 05/15/2024 1:43 PM EST us Martine Gallagher MD LAB CYTOLOGY ORDERABLES Final Result [facility] [address] [place] [address], documented in this encounter Visit Diagnoses Diagnosis Encounter for gynecological examination (general) (routine) without abnormal findings documented in this encounter Care Teams Outside Sales Professional Relationship Specialty Start Date End Date Tejinder Lara MD [address] [place] [address] PCP - General Internal Medicine 06/12/24 documented as of this encounter
--- OUTSIDE RECORDS SUMMARY | 2024-09-20 12:00 | XMS_ITS | Clinical Summary ---
Author Organization [facility] Address [address] [place] [address] 7 [place] [address] Care Team Providers Care Animal Care Taker Name Role Phone Unavailable Primary Care Provider [...] patient's age to complete this topic Insurance [facility] DUAL COMPLETE
== END 2024-09-20 10:27 | disposition home or self-care (01) ==
LOC: HO.HGI 09:51
PROVIDERS: PCP Internal Medicine; Visit Provider Nurse Practitioner Family
DX: Z12.11 Encounter for screening for malignant neoplasm of colon (principal); Z01.818 Encounter for other preprocedural examination
CPT/HCPCS: 99202

== ENCOUNTER → 2024-09-20 09:50 | Outpatient (BNVA) | payer OTHER, SELFPAY | PROVIDERS: PCP Internal Medicine; Visit Provider Nurse Practitioner Family ==

== ENCOUNTER 2024-11-13 11:09 | Outpatient (AMB) | payer OTHER, MEDICAID, SELFPAY ==
[2024-11-13 11:15] VITALS: BP 142/84; PULSE 81; O2SAT 96; BMI 29.1
--- NOTE | 2024-11-13 11:15 | MHC.PC.OV ---
Vital Signs 11/13/24 11:15 Height 5 ft 6 in Weight 180 lb 8 oz BMI 29.1 BP 142/84 H Blood Pressure Location Rt brachial Position Sitting Pulse 81 Pulse Source Pulse Oximeter Pulse Oximetry (%) 96 Oxygen Delivery Method Room Air Intake Visit Reasons: 3 months f/up Allergies No Known Allergies Allergy (Verified 09/20/24 09:57) Medication List - Last Reconciled 11/13/24 by Tejinder Lara MD albuterol sulfate 90 mcg/actuation (Ventolin HFA) 2 puffs inhalation Q4-6H PRN albuterol sulfate 2.5 mg (3 mL) inhalation Q6H alcohol swabs (Alcohol Wipes) 1 pad topical .three times daily atorvastatin 80 mg PO QPM bisacodyl (Dulcolax (bisacodyl)) 20 mg (4 x 5 mg) PO ONCE 1 day blood sugar diagnostic ([employer] Verio test strips) Test blood sugar 3 times per day blood-glucose meter ([employer] Verio Reflect Meter) Check blood sugar three times daily as directed insulin glargine U-300 conc 40 units (0.1333 mL) subcut DAILY 90 days lancets (LOVEThESIGNTouch Delica Plus Lancet) Check blood sugar three times daily as directed lisinopril 20 mg PO BID 90 days meclizine 25 mg PO BID PRN metformin 1,000 mg PO BID 90 days metoprolol tartrate 50 mg PO BID 90 days pen needle, diabetic (BD Ultra-Fine Mini Pen Needle) As directed polyethylene glycol 3350 (Miralax) 238 grams PO ONCE Tobacco use date assessed: 11/13/24 Fall risk assessment: No Falls in past year Last assessed Fall Risk: 11/13/24 Dental Screening Dental Screen Date: 11/13/24 Did you have a dental visit in the last 12 months?: Yes Did you have a dental problem in the last 6 months where you did not have access to dental care?: No Was dental information given to patient?: Patient has dentist HPI 3 months f/up HPI Details History - The patient is a 69-year-old female with a history of diabetes insulin-dependent, hypertension, lipid disorder, constipation, allergies, overweight Came in for regular follow-up appointment and has been feeling sick presenting with an upper respiratory infection. - Symptoms commenced the night after getting wet in the rain during a visit to [place], initiating with coughing and progressing from there. - The patient reports experiencing coughing since Tuesday, but denies any presence of phlegm. - The patient describes feeling tired and having chest involvement, although specifics of chest symptoms were not elaborated upon. - Prior to the onset of coughing, the patient experienced itchy sensations possibly indicative of allergic conjunctivitis, which have since subsided. COVID flu RSV test taken Hemoglobin A1c 7.1 Patient Instructions - Use prednisone as prescribed to help open up the airways. Along with azithromycin - Continue taking albuterol as previously directed. - A blood test will be necessary at next visit in February. - If symptoms worsen or do not improve, seek additional medical attention. - continue the medications refill sent Review of Systems - General: No fever - Neurological: No headaches no dizziness - Ear nose throat: No sore throat no hearing difficulty no ear pain - Cardiovascular: No syncope, no chest pain, no palpitations - Gastrointestinal: No nausea vomiting or diarrhea - Endocrine: No polyuria polydipsia no heat intolerance - Genitourinary: No dysuria , no blood in urine Physical Exam General: No acute distress HEENT: Pathology in the eyes is stopping Neck: Supple Respiratory system: Able to talk in full sentences, no audible wheeze, coughing present Cardiovascular: S1-S2 regular in rate and rhythm Gastrointestinal: No pain Extremities: No new findings NOVELTY CANDY MAKER: Alert awake oriented x3 motor sensory intact Skin: Normal turgor [facility] Surgical History H/O colonoscopy (~2017) History of heart artery stent (~2014) History of hysterectomy (~1997) Social History Housing: House Patient Tobacco Use Status: Never used Tobacco e-Cigarette/Vaping Use: Never Used service: No Current occupational status: unemployed Cognitive needs: No Hearing needs: No Vision needs: Yes Questionnaire PHQ-9 Over the last 2 weeks, how often have you been bothered by any of the following problems? 1. Little interest or pleasure in doing things: not at all 2. Feeling down, depressed, or hopeless: not at all 3. Trouble falling or staying asleep, or sleeping too much: several days 4. Feeling tired or having little energy: several days 5. Poor appetite or overeating: several days 6. Feeling bad about yourself - or that you are a failure or have let yourself or your family down: not at all 7. Trouble concentrating on things, such as reading the newspaper or watching television: not at all 8. Moving or speaking so slowly that other people could have noticed. Or the opposite - being so fidgety or restless that you have been moving around a lot more than usual: not at all 9. Thoughts that you would be better off or of hurting yourself in some way: not at all Total score: 3 Depression Screening Interpretation: Negative Depression Screening Done: Yes 06245 - PHQ-9 Billing: Yes Source: Developed by Drs. Martin Harris, Brook Cunningham, Angel Delarosa and colleagues, with an educational yessica from [employer]. Thrive Questionnaire Date Thrive assessed: 11/13/24 I am a: Patient What is your living situation today?: I have a steady place to live Within the past 12 months, did the food you bought not last and you didn't have the money to get more?: I choose not to answer this question Within the past 12 months, did you worry whether your food would run out before you got money to buy more?: I choose not to answer this question Do you have trouble paying for medicines?: No Do you have trouble getting transportation to medical appointments?: No Do you have trouble paying your heating and electricity bill?: No Do you have trouble taking care of your child, family member or friend?: No Do you have trouble with day-to-day activities such as bathing, preparing meals, shopping, managing finances, etc.?: No Are you currently unemployed and looking for a job?: No Are you interested in more education?: No Please select the resources that you would like help with: None Currently or been in a relationship where the following occur: I choose not to answer THRIVE Score: 0 AUDIT C Alcohol Use Questionnaire (AUDIT-C) 1. How often do you have a drink containing alcohol?: Never 3. How often do you have six or more drinks on one occasion?: Never Total Score: 0 Score Reviewed/Action Taken: Yes JÚNIOR-7 AMB Questionnaire JÚNIOR-7 Date JÚNIOR - 7 assessed: 07/27/24 Source: Developed by Drs. Martin Hraris, Brook Cunningham, Angel Delarosa and colleagues, with an educational yessica from [employer]. Physical exam (Primary Care) Vital Signs: Last Vital Signs Pulse 81 11/13/24 11:15 BP 142/84 H 11/13/24 11:15 Pulse Ox 96 11/13/24 11:15 Oxygen Delivery Method Room Air 11/13/24 11:15 BMI result Body Mass Index 29.1 Tobacco/Smoking Status: Tobacco use Status Tobacco use date assessed 11/13/24 11/13/24 11:17 Patient Tobacco Use Status Never used Tobacco 11/13/24 11:17 e-Cigarette/Vaping Use Never Used 11/13/24 11:17 PHQ-9: PHQ-9 Score PHQ-9: Total score 3 11/13/24 11:24 Depression Screening Interpretation: Negative Thrive Assessment: Date of Thrive Assessment Date Thrive assessed 11/13/24 11/13/24 11:24 Currently or been in a relationship where the following occur: I choose not to answer Results AMB Hemoglobin A1c AMB Hemoglobin A1c 7.2 % Last Edit by Gladys Bruce CMA on 11/13/24 11:32 Results Reviewed Results Reviewed: Laboratory Last Values Hgb A1c (Clinic) 7.2 % (4.0-6.0) H 11/13/24 11:31 Coding Level of Care Code Est Pt Level 4 (93466) Diagnoses Chest congestion R09.89 Type 1 diabetes mellitus with other specified complication E10.69 Diabetes mellitus complication status: with other specified complication Lipid disorder E78.9 Hypertension, essential I10 Additional Codes PHQ-9 - 21132 - PHQ-9 Billing: Yes ([id number]) Assessment & Plan Assessment & Plan (1) Chest congestion: Code(s): R09.89 - Other specified symptoms and signs involving the circulatory and respiratory systems Category: Medical (2) Insulin dependent type 1 diabetes mellitus: Code(s): E10.9 - Type 1 diabetes mellitus without complications Category: Medical Qualifiers: Diabetes mellitus complication status: with other specified complication Qualified Code(s): E10.69 - Type 1 diabetes mellitus with other specified complication (3) Lipid disorder: Code(s): E78.9 - Disorder of lipoprotein metabolism, unspecified Category: Medical (4) Hypertension, essential: Code(s): I10 - Essential (primary) hypertension Category: Medical Plan History - The patient is a 69-year-old female with a history of diabetes insulin-dependent, hypertension, lipid disorder, constipation, allergies, overweight Came in for regular follow-up appointment and has been feeling sick presenting with an upper respiratory infection. - Symptoms commenced the night after getting wet in the rain during a visit to [facility], initiating with coughing and progressing from there. - The patient reports experiencing coughing since Tuesday, but denies any presence of phlegm. - The patient describes feeling tired and having chest involvement, although specifics of chest symptoms were not elaborated upon. - Prior to the onset of coughing, the patient experienced itchy sensations possibly indicative of allergic conjunctivitis, which have since subsided. COVID flu RSV test taken Hemoglobin A1c 7.1 Blood pressure is elevated today we will continue to monitor Patient Instructions - Use prednisone as prescribed to help open up the airways. Along with azithromycin - Continue taking albuterol as previously directed. - A blood test will be necessary at next visit in February. - If symptoms worsen or do not improve, seek additional medical attention. - continue the medications refill sent Orders: Orders Hemoglobin A1c 3 Months E10.69 - Type 1 diabetes mellitus with other specified complication, E78.9 - Disorder of lipoprotein metabolism, unspecified, I10 - Essential (primary) hypertension, R09.89 - Other specified symptoms and signs involving the circulatory and respiratory systems Complete Blood Count Auto Diff 3 Months E10.69 - Type 1 diabetes mellitus with other specified complication, E78.9 - Disorder of lipoprotein metabolism, unspecified, I10 - Essential (primary) hypertension, R09.89 - Other specified symptoms and signs involving the circulatory and respiratory systems Comprehensive Met. Panel 3 Months E10.69 - Type 1 diabetes mellitus with other specified complication, E78.9 - Disorder of lipoprotein metabolism, unspecified, I10 - Essential (primary) hypertension, R09.89 - Other specified symptoms and signs involving the circulatory and respiratory systems AMB Hemoglobin A1c Today E10.69 - Type 1 diabetes mellitus with other specified complication SARS-CoV2/FLU/RSV Today R09.89 - Other specified symptoms and signs involving the circulatory and respiratory systems Medications: New azithromycin Take 2 tablets today then 1 daily 250 mg PO ONCE 5 days 6 tabs 0RF J06.9 - Acute upper respiratory infection, unspecified prednisone 20 mg PO DAILY 5 days 5 tabs 0RF Refilled atorvastatin 80 mg PO QPM 90 tabs 0RF lisinopril 20 mg PO BID 90 days 180 tabs 0RF metoprolol tartrate 50 mg PO BID 90 days 180 tabs 0RF insulin glargine U-300 conc 40 units (0.1333 mL) subcut DAILY 90 days 11.997 mL 3RF metformin 1,000 mg PO BID 90 days 180 tabs 0RF
--- OUTSIDE RECORDS SUMMARY | 2024-11-13 12:58 | XMS_ITS | Clinical Summary ---
Author Organization [employer] Address [address] [place] [address] 7 [place] [address] Care Team Providers Care Contract Runner Name Role Phone Unavailable Primary Care Provider [...] patient's age to complete this topic Insurance [facility] [place] [address]
--- OUTSIDE RECORDS SUMMARY | 2024-11-13 12:58 | XMS_ITS | Clinical Summary ---
Author Organization [address] [facility] Address [address] [place] [phone] Phone Care Team Providers Care Private Eye Name Role Phone Tejinder Lara MD Primary Care Provider [phone] Allergies Active Allergy Reactions Criticality Noted Date Comments Diphenhydramine Hcl Anxiety Low 06/02/2024 Medications No known medications Active Problems No known active problems Surgical History Surgery Date Site/Laterality Comments STENT PLACEMENT Medical History Medical History Date Comments Diabetes ([facility] V24, [facility] V28) Hyperlipidemia Social History Tobacco Use Types Packs/Day [...] 11:00 AM EDT Office Visit Adult Medicine [facility] [address] [place] [address] Hodan Crow MD [address] [place] [address] Health Maintenance Due Date Last Done Comments Breast Cancer Screening 1955 DTaP,Tdap,and Td Vaccines (1 - Tdap) 1973 Pneumococcal Vaccine: 50+ Ye ars (1 of 1 - PCV) 2004 Zoster Vaccines (1 of 2) 2004 COVID-19 Vaccine ( - 2023-2 5 season) 2024 Cholesterol Screening (Lipid Panel) 05/05/2024 Colorectal Cancer Screening: Colonoscopy 05/05/2024 Depression Screening 05/05/2024 Falls Risk Assessment 05/05/2024 Hepatitis C Screening 05/05/2024 Medicare Annual Wellness Visit 05/05/2024 Osteoporosis Screening (Bone Density Screening) 05/05/2024 Social Influencers of Health Screening 05/05/2024 Influenza Vaccine (Season Ended) 2025 Hypertension/CHF/CAD Annual BMP Blood Test 06/02/2025 06/02/2024 RSV Immunization Adult Patie nts (1 - 1-dose 75+ series) 2029 HIB [...] age to complete this topic Meningococcal B Vaccine Aged Out No l onger eligible based on patient's age to complete [...] LAB CHEMISTRY METHOD 06/02/2024 5:03 PM EST [facility] Calcium 9.4 8.5 - 10.5 mg/dL LAB CHEMISTRY METHOD 06/02/2024 5:03 PM EST [facility] Blood Venous blood specimen / Unknown Venipuncture / Unknown 06/02/2024 4:19 PM EST 06/02/2024 4:25 PM EST us Eric B Nguyễn RUBIO LAB BLOOD ORDERABLES Final Resu lt [facility] [address] [place] [address], [place] [phone] from Last 3 Months or Most Recently Relevant to Health Maintenance Insurance * Guarantor: Guru Simpson Account Type Relation to Patient Date of Phone Billing Address Personal/Family Self 1955 [address] [facility] [address] [place] [id number] MEDICAID - [place] [employer] MEDICARE * Guarantor: Guru Simpson Account Type Relation to Patient Date of Phone Billing Address Personal/Family Self 1955 [address] [facility] [address] [place] [id number] Care Teams Private Eye Relationship Specialty Start Date End Date Tejinder Lara MD [address] [place] [address] PCP - General Internal Medicine 06/12/24
--- OUTSIDE RECORDS SUMMARY | 2024-11-13 12:58 | XMS_ITS | Encounter Summary ---
Author Organization [facility] Address [address] [place] [address] Care Team Providers Care Faa Certified Powerplant Mechanic Name Role Phone Tejinder Lara MD Primary Care Provider [phone] Encounter Details Date Type Department Care Team (Late Contact Info) Description 05/15/2024 Lab Requisition [facility] - Main Lab [address] [facility] [employer] [phone] Martine Gallagher MD [facility] [address] [place] [phone] Encounter for general adult medical examination without [...] 11:00 AM EDT Office Visit Adult Medicine [address] [address] Hodan Crow MD [address] [place] [address] documented as of this encounter Visit Diagnoses Diagnosis Encounter for general adult medical examination without abnormal findings documented in this encounter Care Teams Faa Certified Powerplant Mechanic Relationship Specialty Start Date End Date Tejinder Lara MD [address] [place] [phone] PCP - General Internal Medicine 06/12/24 documented as of this encounter
--- OUTSIDE RECORDS SUMMARY | 2024-11-13 12:58 | XMS_ITS | Encounter Summary ---
Author Organization [facility] Address [address] [place] [address] Care Team Providers Care Leaf Binner Name Role Phone Tejinder Lara MD Primary Care Provider [phone] Encounter Details Date Type Department Care Team (Latest Contact Info) Description 05/15/[address] [facility] - Main Lab 299 [facility] [place] [address] Martine Gallagher MD 299 [facility] [address] [place] [phone] Encounter for gynecological examination (general) (routine) without [...] 11:00 AM EDT Office Visit Adult Medicine [address] [address] Hodan Crow MD [address] [place] [address] documented as of this encounter Procedures Procedure Name Priority Date/Time Associated Diagnosis Comments PAP SMEAR Routine 05/14/2024 Encounter for gynecological examination (general) (routine) without abnormal findings documented in this encounter Results * Pap smear (05/14/2024) Interpretation Negative for intraepithelial lesion or malignancy 05/17/2024 2:20 PM EST [facility] General Categorization Negative 05/17/2024 2:20 PM EST [facility] Other Findings Shift in susan suggestive of bacterial vaginosis 05/17/2024 2:20 PM [facility] Specimen Adequacy Satisfactory for evaluation 05/17/2024 2:20 PM EST [facility] Pap Methodology Liquid Based Pap Test 05/17/2024 2:20 PM EST [facility] Disclaimer The Pap test is a screening test which carries an inherent false negative rate. These test results should be correlated with the patient's clinical findings and history. Technical cytopathology services provided by [facility], at [address] [place] [id number] (CLIA # [id number]/Dayana Pacheco MD, Temple Marker.) 05/17/2024 2:20 PM EST [facility] Console Pap Interpretation Reported 05/17/2024 2:20 PM EST [facility] Brushing/Spatula Vaginal structure / Unknown 05/14/2024 05/15/2024 1:43 PM EST us Martine Gallagher MD LAB CYTOLOGY ORDERABLES Final Result [facility] [address] [place] [address], documented in this encounter Visit Diagnoses Diagnosis Encounter for gynecological examination (general) (routine) without abnormal findings documented in this encounter Care Teams Leaf Binner Relationship Specialty Start Date End Date Tejinder Lara MD [address] [place] [address] PCP - General Internal Medicine 06/12/24 documented as of this encounter
== END 2024-11-13 11:34 | disposition home or self-care (01) ==
LOC: HO.HMCC 11:10
PROVIDERS: PCP Internal Medicine; Visit Provider Internal Medicine
DX: R09.89 Other specified symptoms and signs involving the circulatory and respiratory systems (principal); E10.69 Type 1 diabetes mellitus with other specified complication; E78.9 Disorder of lipoprotein metabolism, unspecified; I10 Essential (primary) hypertension

== ENCOUNTER 2024-11-13 11:09 | Outpatient (REF) | payer OTHER, SELFPAY ==
[2024-11-13 15:16] LABS: Influenza A PCR NEGATIVE (Negative); Influenza B PCR NEGATIVE (Negative); Resp Syncy Virus RNA Qual PCR NEGATIVE (Negative); SARS COV2 PCR INHOUSE NEGATIVE (Negative)
== END 2024-11-13 11:10 | disposition home or self-care (01) ==
LOC: HO.LAB 11:09
PROVIDERS: PCP Internal Medicine; Visit Provider Internal Medicine
DX: R09.89 Other specified symptoms and signs involving the circulatory and respiratory systems (principal); E10.69 Type 1 diabetes mellitus with other specified complication; E78.9 Disorder of lipoprotein metabolism, unspecified; I10 Essential (primary) hypertension
CPT/HCPCS: 0241U; 83036; 96127; 99212

== ENCOUNTER 2024-11-22 11:41 | Outpatient (AMB) | payer OTHER, MEDICAID, SELFPAY ==
--- NOTE | 2024-11-22 11:43 | AM.OFFWIN_ITS ---
Intake Vital Signs 11/22/24 11:45 Weight 181 lb BP 138/80 Blood Pressure Location Lt brachial Position Sitting Pulse 73 Pulse Source Pulse Oximeter Pulse Oximetry (%) 98 Oxygen Delivery Method Room Air Intake Visit Reasons: EP pain on back of neck RT side going toward back Intake Note: Patient here for right sided neck pain that radiates down the right side of back that has been present for a couple of days. SHe has tried several otc meds w/no relief and has not been able to sleep. Patient Tobacco Use Status: Never used Tobacco Allergies No Known Allergies Allergy (Verified 11/22/24 11:46) Do you need a note to return to daycare/school/sports/work: No HPI HPI Comments History of Present Illness Details Armenian video nursing department chairperson used for this visit. History of Present Illness - The patient is a 69 year old female pr esenting with neck pain radiating to the right shoulder. - Pain began two days prior, following w aking up with discomfort, without any apparent inciting injury. - The pain localizes from the neck down to her right shoulder. - Efforts to relieve the pain using Tyle nol, Aleve, and Ibuprofen, with IcyHot, have been ineffective. - The pain remains unresponsive to ice a pplication and persistent despite rest, aggravating her muscle spasms. - Movement in the neck area does signifi cantly exacerbate the symptoms further. - Pt is traveling to [place] for an ill famil y member in 2 days Physical Exam General: Cooperative, healthy appearing, comfortable, no acute distress and well developed Orientation: Patient oriented x3 Limitations: Armenian speaking Head: Normal to inspection Ears: Hearing grossly normal bilaterally Nose: Normal External nose present Face and sinus: Normal facial exam Eyes: Appearance normal, both eyes and all related structures Neck: slight ttp on right paraspinous into trapezius muscle into rhonchi area of shoulder, full ROM due with pain Respiratory: Normal respiratory effort and able to speak in complete sentences. Skin: No rashes or lesions noted Neuro: Patient oriented x3 Back/spine: no ttp of cervical or thoracic spine Extremities: Normal to inspection, full ROM right shoulder [facility] Surgical History H/O colonoscopy (~2017) History of heart artery stent (~2014) History of hysterectomy (~1997) Social History Housing: House Patient Tobacco Use Status: Never used Tobacco e-Cigarette/Vaping Use: Never Used service: No Current occupational status: unemployed Cognitive needs: No Hearing needs: No Vision needs: Yes Review of Systems Const All systems reviewed & are unremarkable except as noted in HPI and below Physical Exam Vital Signs: Last Vital Signs Pulse 73 11/22/24 11:45 BP 138/80 11/22/24 11:45 Pulse Ox 98 11/22/24 11:45 Oxygen Delivery Method Room Air 11/22/24 11:45 Assessment & Plan Assessment & Plan (1) Cervical paraspinous muscle spasm: Code(s): M62.838 - Other muscle spasm Plan: The patient presents with a clinical profile indicative of cervical radiculopathy attributed to muscle spasms radiating down to the right shoulder and arm. I have initiated treatment with a muscle relaxant to reduce muscle tension, emphasizing the importance of avoiding alcohol and refraining from driving due to its sedative effects. Furthermore, diclofenac has been prescribed to manage inflammation and pain, with specific instructions against combining it with other NSAIDs. I advised the use of a heating pad or hot water bottle to aid muscle relaxation. Monitoring for relief over several days with follow-up intentions if symptoms do not resolve is planned, potentially incorporating physical therapy interventions to support recovery. Patient was informed and verbally consented to the use of an ambient scribe for clinic note documentation during this visit. (2) Neck pain on right side: Code(s): M54.2 - Cervicalgia Plan: as above Medications: New cyclobenzaprine 10 mg (2 x 5 mg) PO Q8H PRN 20 tabs 0RF Muscle Spasm diclofenac sodium 50 mg PO Q12H PRN 20 tabs 0RF pain Discontinued insulin glargine U-300 conc Discontinued Reason: Insurance Denied 40 units (0.1333 mL) subcut DAILY 90 days 11.997 mL 3RF Coding Level of Care Code Est Pt Level 3 (29026) Diagnoses Cervical paraspinous muscle spasm M62.838 Neck pain on right side M54.2
[2024-11-22 11:45] VITALS: BP 138/80; PULSE 73; O2SAT 98
--- OUTSIDE RECORDS SUMMARY | 2024-11-22 12:47 | XMS_ITS | Encounter Summary ---
Author Organization [facility] Address [address] [place] [address] Care Team Providers Care Heavy Media Operator Name Role Phone Tejinder Lara MD Primary Care Provider [phone] Encounter Details Date Type Department Care Team (Late Contact Info) Description 05/15/2024 Lab Requisition [facility] - Main Lab 299 [facility] [place] [phone] Martine Gallagher MD 299 [facility] [address] [place] [phone] Encounter for general adult medical examination without [...] 11:00 AM EDT Office Visit Adult Medicine [address] [address] Hodan Crow MD [address] [place] [address] documented as of this encounter Visit Diagnoses Diagnosis Encounter for general adult medical examination without abnormal findings documented in this encounter Care Teams Heavy Media Operator Relationship Specialty Start Date End Date Tejinder Lara MD [address] [place] [address] PCP - General Internal Medicine 06/12/24 documented as of this encounter
--- OUTSIDE RECORDS SUMMARY | 2024-11-22 12:47 | XMS_ITS | Clinical Summary ---
Author Organization [employer] Address [address] [place] [address] 7 [place] [address] Care Team Providers Care Metal Cans Supervisor Name Role Phone Unavailable Primary Care Provider [...] to complete this topic Insurance [facility] DUAL COMPLETE
--- OUTSIDE RECORDS SUMMARY | 2024-11-22 12:47 | XMS_ITS | Encounter Summary ---
Author Organization [facility] Address [address] [place] [address] Care Team Providers Care Coiled Coil Inspector Name Role Phone Tejinder Lara MD Primary Care Provider [phone] Encounter Details Date Type Department Care Team (Latest Contact Info) Description 05/15/2024 Lab Requisition [facility] - Main Lab 299 [facility] [place] [address] Martine Gallagher MD 299 [facility] [address] [place] [phone] Encounter for gynecological examination (general) (routine) without [...] 11:00 AM EDT Office Visit Adult Medicine [address] [phone] Hodan Crow MD [address] [place] [address] documented as of this encounter Procedures Procedure Name Priority Date/Time Associated Diagnosis Comments PAP SMEAR Routine 05/14/2024 Encounter for gynecological examination (general) (routine) without abnormal findings documented in this encounter Results * Pap smear (05/14/2024) Interpretation Negative for intraepithelial lesion or malignancy 05/17/2024 2:20 PM EST [facility] General Categorization Negative 05/17/2024 2:20 PM EST [facility] Other Findings Shift in susan suggestive of bacterial vaginosis 05/17/2024 2:20 PM [facility] Specimen Adequacy Satisfactory for evaluation 05/17/2024 2:20 PM EST [facility] Pap Methodology Liquid Based Pap Test 05/17/2024 2:20 PM EST [facility] Disclaimer The Pap test is a screening test which carries an inherent false negative rate. These test results should be correlated with the patient's clinical findings and history. Technical cytopathology services provided by [facility], at [address] [place] [id number] (CLIA # [id number]/Dayana Pacheco MD, Nurse Case Management.) 05/17/2024 2:20 PM EST [facility] Console Pap Interpretation Reported 05/17/2024 2:20 PM EST [facility] Brushing/Spatula Vaginal structure / Unknown 05/14/2024 05/15/2024 1:43 PM EST us Martine Gallagher MD LAB CYTOLOGY ORDERABLES Final Result [facility] [address] [place] [address], documented in this encounter Visit Diagnoses Diagnosis Encounter for gynecological examination (general) (routine) without abnormal findings documented in this encounter Care Teams Coiled Coil Inspector Relationship Specialty Start Date End Date Tejinder Lara MD [address] [place] [address] PCP - General Internal Medicine 06/12/24 documented as of this encounter
--- OUTSIDE RECORDS SUMMARY | 2024-11-22 12:47 | XMS_ITS | Clinical Summary ---
Author Organization 299 [facility] Address [address] [place] [phone] Phone Care Team Providers Care Improvement Coordinator Name Role Phone Tejinder Lara MD Primary Care Provider [phone] Allergies Active Allergy Reactions Criticality Noted Date Comments Diphenhydramine Hcl Anxiety Low 06/02/2024 Medications No known medications Active Problems No known active problems Surgical History Surgery Date Site/Laterality Comments STENT PLACEMENT Medical History Medical History Date Comments Diabetes ([facility] V24, [facility] V28) Hyperlipidemia Social History Tobacco Use Types [...] 11:00 AM EDT Office Visit Adult Medicine [facility] [address] [place] [address] Hodan Crow MD [address] [place] [address] Health Maintenance Due Date Last Done Comments [...] mmol/L LAB CHEMISTRY METHOD 06/02/2024 5:03 PM [facility] Potassium 4.3 3.5 - 5.5 mmol/L LAB CHEMISTRY METHOD 06/02/2024 5:03 PM [facility] Chloride 108 96 - 110 mmol/L LAB CHEMISTRY METHOD 06/02/2024 5:03 PM [facility] CO2 28 21 - 32 mmol/L LAB CHEMISTRY METHOD 06/02/2024 5:03 PM [facility] Anion Gap 5 3 - 11 LAB CHEMISTRY METHOD 06/02/2024 5:03 PM [facility] Glucose 112(H) 70 - 100 mg/dL LAB CHEMISTRY METHOD 06/02/2024 5:03 PM [facility] BUN 12 5 - 25 mg/dL LAB CHEMISTRY METHOD 06/02/2024 5:03 PM [facility] Creatinine 0.72 0.50 - 1.10 mg/dL LAB CHEMISTRY METHOD 06/02/2024 5:03 PM [facility] eGFR 90 >=60 mL/min/1. 73m2 LAB CHEMISTRY METHOD 06/02/2024 5:03 PM [facility] Comment:Calculation based on the??Chronic Kidney Disease Epidemiology Collaboration (CKD-EPI) equation refit??without adjustment for race. BUN/Creatinine Ratio 16.7 LAB CHEMISTRY METHOD 06/02/2024 5:03 PM EST [facility] Calcium 9.4 8.5 - 10.5 mg/dL LAB CHEMISTRY METHOD 06/02/2024 5:03 PM EST [facility] Blood Venous blood specimen / Unknown Venipuncture / Unknown 06/02/2024 4:19 PM EST 06/02/2024 4:25 PM EST us Eric B Nguyễn RUBIO LAB BLOOD ORDERABLES Final Resu lt [facility] ([facility] [address] [place] [address], [place] [phone] from Last 3 Months or Most Recently Relevant to Health Maintenance Insurance * Guarantor: Guru Simpson Account Type Relation to Patient Date of Phone Billing Address Personal/Family Self 1955 [address] [facility] [address] [place] [id number] MEDICAID [place] [address] * Guarantor: Guru Simpson Account Type Relation to Patient Date of Phone Billing Address Personal/Family Self 1955 [address] [facility] [address] [place] [id number] Care Teams Improvement Coordinator Relationship Specialty Start Date End Date Tejinder Lara MD [address] [place] [phone] PCP - General Internal Medicine 06/12/24
== END 2024-11-22 12:10 | disposition home or self-care (01) ==
PROVIDERS: PCP Internal Medicine; Visit Provider Physician Assistant
DX: M62.838 Other muscle spasm (principal); M54.2 Cervicalgia

== ENCOUNTER → 2024-11-22 11:41 | Outpatient (BNVA) | payer OTHER, SELFPAY | PROVIDERS: PCP Internal Medicine; Visit Provider Physician Assistant | DX: M62.838 Other muscle spasm (principal); M54.2 Cervicalgia | CPT/HCPCS: 99212 ==

== ENCOUNTER 2025-02-15 10:56 | Outpatient (REF) | payer OTHER, SELFPAY ==
[2025-02-15 13:17] LABS: MANUAL DIFF FLAG NO
[2025-02-15 13:27] LABS: Hematocrit 37.8 % (37.0-47.0); Hemoglobin 12.0 g/dl (12.0-16.0); Imm Gran Abs Auto 0.02 X10*3/uL (0.00-0.03); Imm Gran Pct Auto 0.4 % (0.0-0.4); Lymphocytes Absolute Auto 1.6 X10*3/uL (1.2-4.9); Mean Corpuscular HGB Conc 31.7 g/dl (31.0-35.0); Mean Corpuscular Hemoglobin 28.2 pg (27.0-33.0); Mean Corpuscular Volume 88.9 fL (80.0-98.0); NRBC Abs Auto 0.000 X10*3/uL (0.0-0.012); NRBC Pct Auto 0.0 /100WBC (0.0-0.2); Platelet Count 291 X10*3/uL (160-400); Red Blood Count 4.25 X10*6/uL (4.20-5.50); White Blood Count 5.4 X10*3/uL (4.8-10.8)
[2025-02-15 13:40] LABS: Hemoglobin A1C 204.6916 umol/L; Total Hemoglobin (HGBA1C) 3204.5864 umol/L
[2025-02-15 14:18] LABS: Alanine Aminotransferase 30 U/L (0-31); Albumin Level 4.2 g/dL (3.5-5.0); Alkaline Phosphatase 132 U/L (39-117); Anion Gap 12 (12-20); Aspartate Amino Transferase 28 U/L (5-31); Blood Urea Nitrogen 11 mg/dL (9-16); Calcium 9.1 mg/dL (8.4-10.2); Carbon Dioxide 30 mmol/L (22-29); Chloride 104 mmol/L (96-108); Cholesterol 253 mg/dL (<200); Estimated Glomerular Filt Rate > 60; HDL Cholesterol 52 mg/dL (>40); Potassium 4.4 mmol/L (3.3-5.1); Sodium 142 mmol/L (135-145); Total Protein 7.8 g/dL (6.5-8.0); Triglycerides 198 mg/dL (<150)
[2025-02-15 16:59] LABS: Microalbum/Creatinine Ratio Ur 5.4 ug/mg cr (<30)
[2025-02-20 15:59] LABS: Vitamin D 25-OH, D2 <4 ng/mL; Vitamin D 25-OH, D3 21 ng/mL; Vitamin D 25-OH, Total 21 ng/mL (30-100)
== END 2025-02-15 10:57 | disposition home or self-care (01) ==
LOC: HO.HMGCLDS 10:56
PROVIDERS: PCP Internal Medicine; Visit Provider Internal Medicine
DX: I10 Essential (primary) hypertension (principal); E78.9 Disorder of lipoprotein metabolism, unspecified; E10.69 Type 1 diabetes mellitus with other specified complication; I25.10 Atherosclerotic heart disease of native coronary artery without angina pectoris; E66.3 Overweight; J45.20 Mild intermittent asthma, uncomplicated; Z79.84 Long term (current) use of oral hypoglycemic drugs; Z79.899 Other long term (current) drug therapy
CPT/HCPCS: 36415; 80053; 80061; 82043; 82306; 82570; 83036; 84443; 85025; 99212

== ENCOUNTER 2025-02-15 10:56 | Outpatient (AMB) | payer OTHER, SELFPAY ==
--- OUTSIDE RECORDS SUMMARY | 2025-02-15 10:59 | XMS_ITS | Encounter Summary ---
Author Organization [facility] Address [address] [place] [address] Care Team Providers Care Substitute Nurse Name Role Phone Tejinder Lara MD Primary Care Provider [phone] Encounter Details Date Type Department Care Team (Late st Contact Info) Description 05/15/2024 Lab Requisition [facility] - Main Lab 299 [facility] [employer] [place] [address] Martine Gallagher MD 299 [facility] [address] [place] [phone] Encounter for general adult medical examination without [...] as of this encounter Plan of Treatment Not on file documented as of this encounter Visit Diagnoses Diagnosis Encounter for general adult medical examination without abnormal findings documented in this encounter Care Teams Substitute Nurse Relationship Specialty Start Date End Date Tejinder Lara MD [address] [facility] [address] [place] [phone] PCP - General Internal Medicine 06/12/24 documented as of this encounter
--- OUTSIDE RECORDS SUMMARY | 2025-02-15 10:59 | XMS_ITS | Clinical Summary ---
Author Organization [employer] Address [address] [place] [address] 7 [place] [address] Care Team Providers Care Lead Front End Developer Name Role Phone Unavailable Primary Care Provider [...] Vaccines (1 of 2) 2004 COVID-19 Vaccine (1 - 2023-2 5 season) 2024 Influenza Vaccine (#1) 2025 RSV Patients and Pa tients Aged 60 [...] patient's age to complete this topic Insurance [facility] [place] [address]
[2025-02-15 11:01] VITALS: BP 136/80; PULSE 62; RESP 18; TEMP 36.9; O2SAT 97; BMI 28.7
--- NOTE | 2025-02-15 11:01 | A.OFFPC_ITS ---
Vital Signs 02/15/25 11:01 Height 5 ft 6 in Weight 178 lb BMI 28.7 BP 136/80 Blood Pressure Location Lt brachial Position Sitting Respiration 18 Pulse 62 Pulse Source Pulse Oximeter Temp 98.4 F Temp Source Oral Pulse Oximetry (%) 97 Oxygen Delivery Method Room Air Intake Visit Reasons: 3 months f/up Allergies diphenhydramine (From Benadryl) Allergy (Verified 02/15/25 11:05) anxious Medication List - Last Reconciled 02/15/25 by Tejinder Lara MD albuterol sulfate 90 mcg/actuation (Ventolin HFA) 2 puffs inhalation Q4-6H PRN albuterol sulfate 2.5 mg (3 mL) inhalation Q6H alcohol swabs (Alcohol Wipes) 1 pad topical .three times daily atorvastatin 80 mg PO QPM bisacodyl (Dulcolax (bisacodyl)) 20 mg (4 x 5 mg) PO ONCE 1 day blood sugar diagnostic (Rococo SoftwareTouch Verio test strips) Test blood sugar 3 times per day blood-glucose meter (Rococo Software[employer] Verio Reflect Meter) Check blood sugar three times daily as directed diclofenac sodium 50 mg PO Q12H PRN lancets (Rococo SoftwareTouch Delica Plus Lancet) Check blood sugar three times daily as directed lisinopril 20 mg PO BID 90 days meclizine 25 mg PO BID PRN metformin 1,000 mg PO BID 90 days metoprolol tartrate 50 mg PO BID 90 days pen needle, diabetic (BD Ultra-Fine Mini Pen Needle) As directed polyethylene glycol 3350 (Miralax) 238 grams PO ONCE Toujeo SoloStar U-300 Insulin (insulin glargine U-300 conc) 40 units (0.1333 mL) subcut DAILY 90 days NS Tobacco use date assessed: 02/15/25 Fall risk assessment: No Falls in past year Last assessed Fall Risk: 02/15/25 Dental Screening Dental Screen Date: 11/13/24 HPI 3 months f/up HPI Details shelter care apt History - The patient is a 69-year-old female wi th a history of diabetes insulin- dependent, hypertension, lipid disorder, constipation, allergies, overweight presenting with elevated blood pressure and coronary artery disease. Essential Hypertension: - The patient reported a single episode of high blood pressure last night she took some garlic and then it came down - Current blood pressure at the visit wa s 136/80. Coronary Artery Disease: - The patient has a history of coronary artery disease and had a stent placed about 8 or 9 years ago. - No current complaints of chest pain or other cardiovascular symptoms reported during the visit. - The patient has not seen a information specialist since moving to the area. - need a referral to Cardiology Diabetes Mellitus: - The patient monitors blood glucose irr egularly; the last recorded value was 105 - taking 40 units of Levemir daily due f or labs. Bereavement: - The patient experienced the of a n older sister in November, which may be contributing to stress levels. Medical History: - Coronary artery disease with a stent p laced 8-9 years ago. - History of hypertension. - Diabetes Mellitus (Type unspecified). Surgical History: - Coronary artery stent placement approx imately 8-9 years ago. Medications - Metformin 1g BID for diabetes manageme nt. - Metoprolol 50 mg BID for hypertension management. - Insulin Levemir (dose not specified du ring conversation) for diabetes management. - Albuterol for respiratory symptoms, us ed with Repplerraft machine. - atorvastatin 80 mg to be restarted - lisinopril 20 units daily - meclizine as needed [place] of Care - Jeremy Garcia, boyfriend, present d uring the visit. Along with her brother who moved from [place] recently Social History: - Currently resides in [place] with familial support. - Recent bereavement due to the of an older sister. - Assumed custody of her brother followi ng the sister?s passing.. - Reported to have come from [place] recently. Problem List - Essential Hypertension - Coronary Artery Disease - Diabetes Mellitus - Emotional distress/Bereavement - overweight - lipid disorder Patient Instructions - Continue monitoring blood pressure reg ularly. - Undergo blood testing at the lab, with a recommendation to do so today on a fasting basis. - Follow up with cardiology as soon as p ossible for coronary artery disease management. - Aim to maintain a balanced diet, and m anage stress levels. - you have an appointment in April for physical exam Review of Systems - General: No fever no chills - Neurological: No headaches no dizziness - Ear nose throat: No sore throat no hearing difficulty no ear pain - Cardiovascular: No syncope, no chest pain, no palpitations - Gastrointestinal: No nausea vomiting or diarrhea - Endocrine: No polyuria polydipsia no heat intolerance - Genitourinary: No dysuria , no blood in urine Physical Exam General: No acute distress HEENT: No acute findings Neck: Supple Respiratory system: Able to talk in full sentences, no audible wheeze Cardiovascular: S1-S2 regular in rate and rhythm, blood pressure 136/80 Gastrointestinal: No pain Extremities: No new findings POT RUNNER: Alert awake oriented x3 motor sensory intact Skin: Normal turgor [facility] Surgical History H/O colonoscopy (~2017) History of heart artery stent (~2014) History of hysterectomy (~1997) Family History Father Hypertension Diabetes Mother Diabetes Hypertension Brother Mental health disorder Social History Housing: House Patient Tobacco Use Status: Never used Tobacco e-Cigarette/Vaping Use: Never Used service: No Current occupational status: unemployed Cognitive needs: No Hearing needs: No Vision needs: Yes Questionnaire Thrive Questionnaire Date Thrive assessed: 07/27/24 I am a: Patient What is your living situation today?: I have a steady place to live Within the past 12 months, did the food you bought not last and you didn't have the money to get more?: I choose not to answer this question Within the past 12 months, did you worry whether your food would run out before you got money to buy more?: I choose not to answer this question Do you have trouble paying for medicines?: No Do you have trouble getting transportation to medical appointments?: No Do you have trouble paying your heating and electricity bill?: No Do you have trouble taking care of your child, family member or friend?: No Do you have trouble with day-to-day activities such as bathing, preparing meals, shopping, managing finances, etc.?: No Are you currently unemployed and looking for a job?: No Are you interested in more education?: No Please select the resources that you would like help with: None Currently or been in a relationship where the following occur: I choose not to answer THRIVE Score: 0 AUDIT C Alcohol Use Questionnaire (AUDIT-C) 1. How often do you have a drink containing alcohol?: Never 3. How often do you have six or more drinks on one occasion?: Never Total Score: 0 JÚNIOR-7 AMB Questionnaire JÚNIOR-7 Date JÚNIOR - 7 assessed: 07/27/24 Source: Developed by Drs. Martin Harris, Brook Cunningham, Angel Delarosa and colleagues, with an educational yessica from [employer]. Physical exam (Primary Care) Vital Signs: Last Vital Signs Temp 98.4 F 02/15/25 11:01 Pulse 62 02/15/25 11:01 Resp 18 02/15/25 11:01 BP 136/80 02/15/25 11:01 Pulse Ox 97 02/15/25 11:01 Oxygen Delivery Method Room Air 02/15/25 11:01 BMI result Body Mass Index 28.7 Tobacco/Smoking Status: Tobacco use Status Tobacco use date assessed 02/15/25 02/15/25 11:10 Patient Tobacco Use Status Never used Tobacco 02/15/25 11:01 e-Cigarette/Vaping Use Never Used 02/15/25 11:01 Thrive Assessment: Date of Thrive Assessment Date Thrive assessed 07/27/24 02/15/25 11:01 Currently or been in a relationship where the following occur: I choose not to answer Coding Level of Care Code Est Pt Level 4 (52502) Diagnoses Hypertension, essential I10 Lipid disorder E78.9 Type 1 diabetes mellitus with other specified complication E10.69 Diabetes mellitus complication status: with other specified complication Coronary artery disease involving [place] coronary artery of [place] heart without angina pectoris I25.10 Coronary Disease-Associated Artery/Lesion type: [place] artery [place] vs. transplanted heart: [place] heart Associated angina: without angina Overweight (BMI 25.0-29.9) E66.3 Mild intermittent asthma without complication J45.20 Asthma severity: mild Asthma complication type: uncomplicated Assessment & Plan Assessment & Plan (1) Hypertension, essential: Code(s): I10 - Essential (primary) hypertension Category: Medical (2) Lipid disorder: Code(s): E78.9 - Disorder of lipoprotein metabolism, unspecified Category: Medical (3) Insulin dependent type 1 diabetes mellitus: Code(s): E10.9 - Type 1 diabetes mellitus without complications Category: Medical Qualifiers: Diabetes mellitus complication status: with other specified complication Qualified Code(s): E10.69 - Type 1 diabetes mellitus with other specified complication (4) CAD (coronary artery disease): Code(s): I25.10 - Atherosclerotic heart disease of [place] coronary artery without angina pectoris Category: Medical Qualifiers: Coronary Disease-Associated Artery/Lesion type: [place] artery [place] vs. transplanted heart: [place] heart Associated angina: without angina Qu alified Code(s): I25.10 - Atherosclerotic heart disease of [place] coronary artery without angina pectoris (5) Overweight (BMI 25.0-29.9): Code(s): E66.3 - Overweight Category: Medical (6) Intermittent asthma: Code(s): J45.20 - Mild intermittent asthma, uncomplicated Category: Medical Qualifiers: Asthma severity: mild Asthma complication type: uncomplicated Qualified Code(s): J45.20 - Mild intermittent asthma, uncomplicated Plan shelter care apt History - The patient is a 69-year-old female with a history of diabetes insulin- dependent, hypertension, lipid disorder, constipation, allergies, overweight presenting with elevated blood pressure and coronary artery disease. Essential Hypertension: - The patient reported a single episode of high blood pressure last night she took some garlic and then it came down - Current blood pressure at the visit was 136/80. Coronary Artery Disease: - The patient has a history of coronary artery disease and had a stent placed about 8 or 9 years ago. - No current complaints of chest pain or other cardiovascular symptoms reported during the visit. - The patient has not seen a information specialist since moving to the area. - need a referral to Cardiology Diabetes Mellitus: - The patient monitors blood glucose irregularly; the last recorded value was 105 - taking 40 units of Levemir daily due for labs. Bereavement: - The patient experienced the of an older sister in November, which may be contributing to stress levels. Medical History: - Coronary artery disease with a stent placed 8-9 years ago. - History of hypertension. - Diabetes Mellitus (Type unspecified). Surgical History: - Coronary artery stent placement approximately 8-9 years ago. Medications - Metformin 1g BID for diabetes management. - Metoprolol 50 mg BID for hypertension management. - Insulin Levemir (dose not specified during conversation) for diabetes management. - Albuterol for respiratory symptoms, used with updraft machine. - atorvastatin 80 mg to be restarted - lisinopril 20 units daily - meclizine as needed [place] of Care - Jeremy Garcia, boyfriend, present during the visit. Along with her brother who moved from [place] recently Social History: - Currently resides in [place] with familial support. - Recent bereavement due to the of an older sister. - Assumed custody of her brother following the sister?s passing.. - Reported to have come from [place] recently. Problem List - Essential Hypertension - Coronary Artery Disease - Diabetes Mellitus - Emotional distress/Bereavement - overweight - lipid disorder - intermittent asthma Patient Instructions - Continue monitoring blood pressure regularly. - Undergo blood testing at the lab, with a recommendation to do so today on a fasting basis. - Follow up with cardiology as soon as possible for coronary artery disease management. - Aim to maintain a balanced diet, and manage stress levels. - you have an appointment in April for physical exam Orders: Orders Complete Blood Count Auto Diff Today E10.69 - Type 1 diabetes mellitus with other specified complication, E78.9 - Disorder of lipoprotein metabolism, unspecified, I10 - Essential (primary) hypertension Comprehensive [place]. Panel Fast Today E10. - Type 1 diabetes mellitus with other specified complication, E78.9 - Disorder of lipoprotein metabolism, unspecified, I10 - Essential (primary) hypertension Lipid Panel Today E10.69 - Type 1 diabetes mellitus with other specified complication, E78.9 - Disorder of lipoprotein metabolism, unspecified, I10 - Essential (primary) hypertension TSH reflex Free T4 Today E10.69 - Type 1 diabetes mellitus with other specified complication, E78.9 - Disorder of lipoprotein metabolism, unspecified, I10 - Essential (primary) hypertension Vitamin D 25-OH (D2 and D3) Today E10.69 - Type 1 diabetes mellitus with other specified complication, E78.9 - Disorder of lipoprotein metabolism, unspecified, I10 - Essential (primary) hypertension Hemoglobin A1c Today E10.69 - Type 1 diabetes mellitus with other specified complication, E78.9 - Disorder of lipoprotein metabolism, unspecified, I10 - Essential (primary) hypertension Microalbumin, Random (w Creat) Today E10.69 - Type 1 diabetes mellitus with other specified complication, E78.9 - Disorder of lipoprotein metabolism, unspecified, I10 - Essential (primary) hypertension Referrals Cardiology Referral I25.10 - Atherosclerotic heart disease of [place] coronary artery without angina pectoris
== END 2025-02-15 11:28 | disposition home or self-care (01) ==
LOC: HO.HMCC 10:57
PROVIDERS: PCP Internal Medicine; Visit Provider Internal Medicine
DX: I10 Essential (primary) hypertension (principal); E78.9 Disorder of lipoprotein metabolism, unspecified; E10.69 Type 1 diabetes mellitus with other specified complication; I25.10 Atherosclerotic heart disease of native coronary artery without angina pectoris; E66.3 Overweight; J45.20 Mild intermittent asthma, uncomplicated

== ENCOUNTER 2025-04-08 13:14 | Outpatient (AMB) | payer OTHER, SELFPAY ==
--- NOTE | 2025-04-08 13:25 | MHC.OFFVIS ---
Vital Signs 04/08/25 13:31 Height 5 ft 6 in Weight 180 lb BMI 29.0 BP 146/70 H Blood Pressure Location Lt brachial Position Sitting Pulse 62 Pulse Source Pulse Oximeter Pulse Oximetry (%) 96 Oxygen Delivery Method Room Air Intake Visit Reasons: Rectal pain and bleeding Intake Note: Est pt for mgmt of hemorrhoids + CIC. Rediscuss colo. CC: C.O. isolated episodes of rectal bleeding. Pt states that she had one episode x2 weeks ago which only lasted 1 day. Pt denies any additional sx or concerns at this time. Latex Foam Worker Required: No Accompanied by: Family/Other Allergies diphenhydramine (From Benadryl) Allergy (Verified 02/15/25 11:05) anxious HPI HPI Rectal pain and bleeding: Details: LAST VISIT: Colon cancer screening Plan Patient denies any GI, cardiac or respiratory symptoms.? Denies any issues with anesthesia in the past.? Denies any history of sleep apnea.? No history infectious diseases in the past or present.? Not on any anticoagulation therapy.? No family or personal history of colon cancer. Patient is on long-acting insulin every evening 40 units. Patient will take 20 units 2 nights and 1 night before the procedure.? Patient denies melena, hematochezia, unintentional weight loss or ribbon like stools.? Discussed at length the pre-procedure,? prep, diet & medications as well as what to expect prior, during and after the procedure.?? Stressed the importance of good bowel prep.? Recommended the use of Vaseline or Calmoseptine OTC & baby wipes with bowel movements to promote comfort.? ?Patient verbalizes understanding and agrees to plan of care.? She was given the opportunity to ask questions and all questions answered.? We will see her after the procedure.? New polyethylene glycol 3350 (Miralax) As directed by gastroenterology department at [facility] 238 grams PO ONCE 238 grams 0RF Z12.11 bisacodyl (Dulcolax (bisacodyl)) take 4 tabs at noon the day before your colonoscopy 20 mg (4 x 5 mg) PO ONCE 1 day 4 tabs 0RF constipation Z12.11 TODAY'S VISIT Patient here for evaluation of 1 episode of rectal bleeding and pain following a bowel movement. Patient reports a history of internal hemorrhoids and she believes the bleeding was likely this. Paqtient reports that this was a single event and has not had any additional bleeding, pain or additional symptoms since. Patient reports that she does not have any constipation symptoms and has a bowel movement 1-2 times a day. Patient was seen in this office in September for pre colonoscopy screening, however has not been booked yet. Last colonoscopy 2017 with 2 small benign polyps removed. Recommended 5 year f/u. ? Today denies dysphagia, dyspepsia, odynophagia, heartburn, early satiety, epigastric pain, lower abdominal pain, belching, change in bowel habits, diarrhea, loose stools, constipation, bloating, melena, hematochezia, excessive flatus, ribbon like stools, nausea, vomiting, unintentional weight loss. No known family history of colon cancer. Has no known adverse reactions to anesthesia. No OLAMIDE. No blood thinning medications.? [facility] Surgical History H/O colonoscopy (~2017) History of heart artery stent (~2014) History of hysterectomy (~1997) Family History Father Hypertension Diabetes Mother Diabetes Hypertension Brother Mental health disorder Social History Housing: House Patient Tobacco Use Status: Never used Tobacco e-Cigarette/Vaping Use: Never Used service: No Current occupational status: unemployed Cognitive needs: No Hearing needs: No Vision needs: Yes Review of Systems Const Denies weight gain and Denies weight loss ENT Reports no additional complaints, Denies dysphagia and Denies odynophagia Card Reports no additional complaints Resp Reports no additional complaints GI Denies abdominal pain, Denies belching, Denies melena, Denies bloating, Denies change in bowel habits, Denies dysphagia, Denies excessive flatus, Denies dyspepsia, Denies heartburn, Denies diarrhea, Denies loose stools, Denies nausea, Denies odynophagia and Denies vomiting Reports no additional complaints Musc Reports no additional complaints Neuro Reports no additional complaints Psych Reports no additional complaints Endo Reports no additional complaints Physical Exam Vital Signs: Last Vital Signs Pulse 62 04/08/25 13:31 BP 146/70 H 04/08/25 13:31 Pulse Ox 96 04/08/25 13:31 Oxygen Delivery Method Room Air 04/08/25 13:31 BMI result Body Mass Index 29.0 Const General: healthy appearing, no acute distress and well developed Nutritional Appearance: well nourished Orientation/consciousness: patient oriented x3 Resp Effort & Inspection: normal respiratory effort, able to speak in complete sentences, no tracheal deviation and symmetric chest movement Auscultation: clear to auscultation bilaterally Cardio Rate: regular rate GI Inspection: Yes normal to inspection and No distended Palpation (GI): Soft to palpation, not firm, nontender and No hepatosplenomegaly present Auscultation: normal bowel sounds General: Yes no CVA tenderness Back/Spine/Pelvis Back: no CVA tenderness Skin General skin exam: elasticity normal, turgor normal and dry skin Neuro General: patient oriented x3 Psych Appearance: grossly normal Mental Status: mental status grossly normal Assessment & Plan Assessment & Plan (1) Colon cancer screening: Code(s): Z12.11 - Encounter for screening for malignant neoplasm of colon Category: Medical (2) Rectal bleed: Code(s): K62.5 - Hemorrhage of anus and rectum Plan Will schedule colonoscopy for next available time.. Patient has prep and has no questions. Will follow up in 1-2 weeks post procedure or sooner if needed.? Patient is agreeable to plan of care and verbalizes understanding of instructions. She was given the opportunity to ask questions and all questions answered. Thank you for allowing me to participate in her care Coding Level of Care Code Est Pt Level 3 (52638) Complex EM visit Add On G2211 Diagnoses Colon cancer screening Z12.11 Rectal bleed K62.5 Time Spent (min) 30 Comment 20 minutes spent with patient and additional 10 minutes spent reviewing her records
[2025-04-08 13:31] VITALS: BP 146/70; PULSE 62; O2SAT 96; BMI 29.0
== END 2025-04-08 14:20 | disposition home or self-care (01) ==
LOC: HO.HGI 13:15
PROVIDERS: PCP Internal Medicine; Visit Provider Nurse Practitioner Family
DX: K62.5 Hemorrhage of anus and rectum (principal); Z12.11 Encounter for screening for malignant neoplasm of colon
CPT/HCPCS: 99213; G2211

== ENCOUNTER → 2025-04-08 13:14 | Outpatient (BNVA) | payer OTHER, SELFPAY | PROVIDERS: PCP Internal Medicine; Visit Provider Nurse Practitioner Family | DX: Z01.818 Encounter for other preprocedural examination (principal); K62.5 Hemorrhage of anus and rectum | CPT/HCPCS: 99212 ==

== ENCOUNTER 2025-04-11 10:23 | Day surgery (SDC) | payer OTHER, SELFPAY ==
--- OUTSIDE RECORDS SUMMARY | 2025-04-08 17:24 | XMS_ITS | Encounter Summary ---
Author Organization [facility] Address [address] [place] [address] Care Team Providers Care Vendor Quality Supervisor Name Role Phone Tejinder Lara MD Primary Care Provider [phone] Encounter Details Date Type Department Care Team (Late st Contact Info) Description 05/15/2024 Lab Requisition [facility] - Main Lab [address] [facility] [place] [address] Martine Gallagher MD [address] [facility] [address] [place] [phone] Encounter for general adult medical examination without [...] findings documented in this encounter Care Teams Vendor Quality Supervisor Relationship Specialty Start Date End Date Tejinder Lara MD [address] [facility] [place] [id number] PCP - General Internal Medicine 06/12/24 documented as of this encounter
--- OUTSIDE RECORDS SUMMARY | 2025-04-08 17:25 | XMS_ITS | Encounter Summary ---
Author Organization [facility] Address [address] [place] [address] Care Team Providers Care Twister Frame Tender Name Role Phone Tejinder Lara MD Primary Care Provider [phone] Encounter Details Date Type Department Care Team (Latest Contact Info) Description 05/15/[address] [facility] - Main Lab [address] [facility] [address] Martine Gallagher MD 299 [facility] [address] [place] [phone] Encounter for gynecological examination (general) (routine) without [...] on file documented as of this encounter Procedures Procedure Name Priority Date/Time Associated Diagnosis Comments PAP SMEAR Routine 05/14/2024 Encounter for gynecological examination (general) (routine) without abnormal findings documented in this encounter Results * Pap smear (05/14/2024) Interpretation Negative for intraepithelial lesion or malignancy 05/17/2024 2:20 PM [facility] General Categorization Negative 05/17/2024 2:20 PM [facility] Other Findings Shift in susan suggestive of bacterial vaginosis 05/17/2024 2:20 PM [facility] Specimen Adequacy Satisfactory for evaluation 05/17/2024 2:20 PM [facility] Pap Methodology Liquid Based Pap Test 05/17/2024 2:20 PM [facility] Disclaimer The Pap test is a screening test which carries an inherent false negative rate. These test results should be correlated with the patient's clinical findings and history. Technical cytopathology services provided by [facility], at [address] [place] [address] (CLIA # [id number]/Dayana Pacheco MD, Car Salter.) 05/17/2024 2:20 PM [facility] Console Pap Interpretation Reported 05/17/2024 2:20 PM [facility] Brushing/Spatula Vaginal structure / Unknown 05/14/2024 05/15/2024 1:43 PM EST us Martine Gallagher MD LAB CYTOLOGY ORDERABLES Final Result [facility] [address] [place] [address], documented in this encounter Visit Diagnoses Diagnosis Encounter for gynecological examination (general) (routine) without abnormal findings documented in this encounter Care Teams Twister Frame Tender Relationship Specialty Start Date End Date Tejinder Lara MD [address] [facility] [place] [address] PCP - General Internal Medicine 06/12/24 documented as of this encounter
--- OUTSIDE RECORDS SUMMARY | 2025-04-08 17:25 | XMS_ITS | Clinical Summary ---
Author Organization [address] [facility] Address [address] [place] [phone] Phone Care Team Providers Care Food Service Kitchen Supervisor Name Role Phone Tejinder Lara MD Primary Care Provider Allergies Active Allergy Reactions Criticality Noted Date Comments Diphenhydramine Hcl Anxiety Low 06/02/2024 Medications No known medications Active Problems No known active problems Surgical History Surgery Date Site/Laterality Comments STENT PLACEMENT Medical History Medical History Date Comments Diabetes ([facility] V24, [facility] V28) Hyperlipidemia Social History Tobacco [...] 55 06/02/2024 6:28 PM EST Temperature 37 C (98.6 F) 06/02/2024 3:57 PM EST Respiratory Rate 18 06/02/2024 6:28 PM EST Oxygen Saturation 98% 06/02/2024 6:28 PM EST Inhaled Oxygen Concentration - - Weight 77.1 kg (170 lb) 06/02/2024 3:57 PM EST Height 167.6 cm (5' 6 ) 06/02/2024 3:57 PM EST Body Mass Index 27.44 06/02/2024 3:57 PM EST Plan of Treatment Health Maintenance Due Date Last Done Comments Breast Cancer Screening 1955 DTaP,Tdap,and Td Vaccines (1 - Tdap) 1973 Pneumococcal Vaccine: 50+ Ye ars (1 of 1 - PCV) 2004 Zoster Vaccines (1 of 2) 2004 Cholesterol Screening (Lipid Panel) 05/05/2024 Colorectal Cancer Screening: Colonoscopy 05/05/2024 Falls Risk Assessment 05/05/2024 Hepatitis C Screening 05/05/2024 Medicare Annual Wellness Visit 05/05/2024 Osteoporosis Screening (Bone Density Screening) 05/05/2024 Social Influencers of Health Screening 05/05/2024 Depression Screening 07/11/2024 COVID-19 Vaccine (1 - 2023-2 5 season) 2025 Influenza Vaccine (#1) 2025 Hypertension/CHF/CAD Annual BMP Blood Test 06/02/2025 [...] mmol/L LAB CHEMISTRY METHOD 06/02/2024 5:03 PM [facility] Potassium 4.3 3.5 - 5.5 mmol/L LAB CHEMISTRY METHOD 06/02/2024 5:03 PM [facility] Chloride 108 96 - 110 mmol/L LAB CHEMISTRY METHOD 06/02/2024 5:03 PM [facility] CO2 28 21 - 32 mmol/L LAB CHEMISTRY METHOD 06/02/2024 5:03 PM [facility] Anion Gap 5 3 - 11 LAB CHEMISTRY METHOD 06/02/2024 5:03 PM [facility] Glucose 112(H) 70 - 100 mg/dL LAB CHEMISTRY METHOD 06/02/2024 5:03 PM [facility] BUN 12 5 - 25 mg/dL LAB CHEMISTRY METHOD 06/02/2024 5:03 PM [facility] Creatinine 0.72 0.50 - 1.10 mg/dL LAB CHEMISTRY METHOD 06/02/2024 5:03 PM [facility] eGFR 90 >=60 mL/min/1. 73m2 LAB CHEMISTRY METHOD 06/02/2024 5:03 PM [facility] Comment:Calculation based on the Chronic Kidney Disease Epidemiology Collaboration (CKD-EPI) equation refit without adjustment for race. BUN/Creatinine Ratio 16.7 LAB CHEMISTRY METHOD 06/02/2024 5:03 PM [facility] Calcium 9.4 8.5 - 10.5 mg/dL LAB CHEMISTRY METHOD 06/02/2024 5:03 PM [facility] Blood Venous blood specimen / Unknown Venipuncture / Unknown 06/02/2024 4:19 PM EST 06/02/2024 4:25 PM EST us Eric Adrian MD LAB BLOOD ORDERABLES Final Resu lt [facility] ([facility]) [facility] [address] [place] [address], [place] [phone] from Last 3 Months or Most Recently Relevant to Health Maintenance Insurance [place] - [place] [employer] MEDICARE Care Teams Food Service Kitchen Supervisor Relationship Specialty Start Date End Date Tejinder Lara MD [address] [facility] [place] [phone] PCP - General Internal Medicine 06/12/24
--- OUTSIDE RECORDS SUMMARY | 2025-04-08 17:25 | XMS_ITS | Clinical Summary ---
Author Organization [employer] Address [address] [place] [address] [address] [place] [address] Care Team Providers Care Bank President Name Role Phone Unavailable Primary Care Provider [...] 5 season) 2025 Influenza Vaccine (#1) 2025 RSV Patients and [...] patient's age to complete this topic Insurance [facility] DUAL COMPLETE
--- NOTE | 2025-04-10 12:13 | P.CONAN_ITS ---
Documented by User: Eboni Lopez NP 04/10/25 12:15 HPI - Anesthesia Eval Consult details Narrative: 69yo F for Colonoscopy CAD s/p stent 2014. Recently moved to this area. Eval with PCP (referred to local cardiology). Asymptomatic and OK'd to proceed with colo prior to cardiolog y eval. Anesthesia Pre-Procedure Meds Is the patient on any of the following meds?: GLP1/DPP4 PMFSH Active Problems Active Problems: All Active Problems Neck pain on right side (Acute) Cervical paraspinous muscle spasm (Acute) Chest congestion (Acute) Wheezing (Acute) Menopause (Acute) Bilateral impacted cerumen (Acute) Dizziness (Acute) Encounter for routine gynecological examination (Acute) Colon cancer screening (Acute) Overweight (BMI 25.0-29.9) (Acute) Lipid disorder (Acute) Insulin dependent type 1 diabetes mellitus (Acute) Establishing care with new doctor, encounter for (Acute) Past Medical History Medical History Diabetes Intermittent asthma Hypertension, essential CAD (coronary artery disease) Family History Family History Father Hypertension Diabetes Mother Diabetes Hypertension Brother Mental health disorder Surgical History Surgical History H/O colonoscopy (~2017) History of heart artery stent (~2014) History of hysterectomy (~1997) Social History Social History Housing: House Are you a primary critical care physician assistant to a significant other at home: No Do you presently have visiting nurse or other home services: No Patient Tobacco Use Status: Never used Tobacco e-Cigarette/Vaping Use: Never Used Have you been hit, kicked, punched, or otherwise hurt by someone within the past year? If so, by whom?: No Are you DNR?: No Advance Directives: No Advance Directives Information Provided: Yes Poor oral hygiene: Yes service: No Current occupational status: unemployed Cognitive needs: No Hearing needs: No Vision needs: Yes Meds Allergies Allergy/AdvReac Type Severity Reaction Status Date / Time diphenhydramine (From Allergy anxious Verified 04/11/25 11:36 Benadryl) Home Medications ?Medication ?Instructions ?Recorded ?Confirmed ?Last Taken ?Type albuterol sulfate 90 mcg/actuation 2 puff inhalation Q 4-6H PRN 04/24/24 04/11/25 Unknown History aerosol inhaler (Ventolin HFA) Bronchospasm Exam Pertinent Lab Results Pertinent Lab Results: Laboratory Tests 02/15/25 11:41 WBC 5.4 Hgb 12.0 Hct 37.8 Plt Count 291 Sodium 142 Potassium 4.4 Chloride 104 Carbon Dioxide 30 H BUN 11 Creatinine 0.68 Assessment and Plan Assessment Anesthesia Assessment: Chart Reviewed Documented by User: Nicol Jane MD 04/11/25 11:48 PMFSH Past Medical History Medical History Diabetes Intermittent asthma Hypertension, essential CAD (coronary artery disease) Family History Family History Father Hypertension Diabetes Mother Diabetes Hypertension Brother Mental health disorder Surgical History Surgical History H/O colonoscopy (~2017) History of heart artery stent (~2014) History of hysterectomy (~1997) History of Problems with Anesthesia: No Social History Social History Housing: House Are you a primary critical care physician assistant to a significant other at home: No Do you presently have visiting nurse or other home services: No Patient Tobacco Use Status: Never used Tobacco e-Cigarette/Vaping Use: Never Used Have you been hit, kicked, punched, or otherwise hurt by someone within the past year? If so, by whom?: No Are you DNR?: No Advance Directives: No Advance Directives Information Provided: Yes Poor oral hygiene: Yes service: No Current occupational status: unemployed Cognitive needs: No Hearing needs: No Vision needs: Yes Meds Allergies Allergy/AdvReac Type Severity Reaction Status Date / Time diphenhydramine (From Allergy anxious Verified 04/11/25 11:36 Benadryl) Home Medications ?Medication ?Instructions ?Recorded ?Confirmed ?Last Taken ?Type albuterol sulfate 90 mcg/actuation 2 puff inhalation Q 4-6H PRN 04/24/24 04/11/25 Unknown History aerosol inhaler (Ventolin HFA) Bronchospasm Exam Airway Mallampati Class: II TM Dist: >3cm Neck ROM: Full Denture: Upper Loose/Missing/Broken Teeth: Yes, Upper and Lower Heart: RRR Lungs: CTA Assessment and Plan Assessment Anesthesia Assessment: Anesthesia Plan Discussed Final Anesthetic Review History of Problems with Anesthesia: No NPO: Yes ASA Class: III Final Preanesthetic Review: Meds/Allgs Chart Reviewed, Consent Obtained/Reviewed and Anes Risks/Benef Reviewed Patient Risk: Intermediate Procedure Risk: Low Anesthetic Plan Anesthetic Plan: MAC: Disposition: Standard PACU
[2025-04-11 11:03] LABS: Glucose, Whole Blood 152 mg/dL (60-115)
[2025-04-11] MEDS: Lactated Ringers 1,000 ML 100 ML IVCONT (11:06)
[2025-04-11 11:20] VITALS: BMI 28.7
[2025-04-11 11:21] VITALS: BP 162/64; PULSE 59; RESP 18; TEMP 36.6; O2SAT 96
--- NOTE | 2025-04-11 12:02 | P.HPSUR_ITS ---
Pre-Procedural Eval Section A - 24 Hr Update-Section A only Date of Service: 04/11/25 Section B - Complete if H&P > 30 days Chief Complaint: melena,screening Relevant Family History (Specify if Yes): No Relevant Social History: None Present Medications: see Short Stay Collaborative assessment Medical History: Significant History (dm,hyperlipidemia ) History of Previous Operations: Relevant previous surgery/procedure and date(s) (H/O colonoscopy (~2017) History of heart artery stent (~2014) History of hysterectomy (~1997)) Allergies: Allergies Allergy/AdvReac Type Severity Reaction Status Date / Time diphenhydramine (From Allergy anxious Verified 04/11/25 11:36 Benadryl) Review of Systems Sugical H&P ROS: Negative: Constitution, Cardiovascular, Respiratory, Neurological, Psychiatric, Hem-Onc, Allergic/Immunologic, Gastrointestinal, Genitourinary, Musculoskeletal, Integumentary, Endocrine and Eyes/Ears/Nose/Throat Exam Surgical H&P Exam: Normal: HEENT, Normal: Heart, Normal: Lungs, Normal: Ex tremities, Normal: Abdomen, Normal: Skin and Normal: Neurological Plan Diagnosis/Plan: Unchanged I have reviewed the history and physical and performed a pertinent physical examination on my patient. No changes have occurred unless specified. Time Spent With Patient Time: Total time managing care of this patient today ____ minutes.
--- NOTE | 2025-04-11 12:34 | P.OPN-COLO_ITS ---
Colonoscopy Operative Note Operative Note Date of Service: 04/11/25 Narrative: Operative Information Procedure Description: Colonoscopy Indication: screening Anesthesia: MAC COLONOSCOPY Instrument: Olympus variable stiffness pediatric scope 190L Colonoscopy Monitoring: Vital signs and clinical assessment, continuous EKG monitoring, Pulse oximetry, Carbon Dioxide monitoring and blood pressure monitoring were done throughout the procedure. Colon withdrawal time was 11 minutes. Procedure: The patient was placed in the left lateral decubitis position and pre-procedure medications were administered. After a digital rectal examination of the ano-rectum, the video colonoscope was inserted into the rectum and advanced through the colon to the cecum/TI. The colonoscope was slowly withdrawn in a retrograde panoramic fashion and the colon mucosa was carefully examined including a retroflexed view of the rectum. Findings and interventions are described below. Procedure Difficulty: easy Findings: Terminal Ileum-normal Cecum:normal Ascending Colon: 3-4 mm sessile polyp removed with cold forceps Transverse Colon -normal Descending Colon:normal Sigmoid Colon: mild diverticulosis Rectum: Retroflexion with small internal hemorrhoids seen, grade I, x 1 sessile polyp 3-4 mm removed with cold forceps Anorectum - normal Intervention: cold forceps Colon preparation: [place] Bowel Preparation Scale Right colon; 1-2 Transverse colon: 2 Left colon; 2 (0 = Unprepared colon segment with mucosa not seen due to solid stool that cannot be cleared. 1 = Portion of mucosa of the colon segment seen, but other areas of the colon segment not well seen due to staining, residual stool and/or opaque liquid. 2 = Minor amount of residual staining, small fragments of stool and/or opaque liquid, but mucosa of colon segment seen well. 3 = Entire mucosa of colon segment seen well with no residual staining, small fragments of stool or opaque liquid) Impression and Post Procedure Diagnosis: diverticulosis colon polyps x 2 internal hemorrhoids Plan: High fiber diet leaflet Avoid straining at stool, epsom salts and sitz bath, anusol supps or cream Repeat Colonoscopy in 5 years due to some areas of fair prep or earlier if clinically indicated Above findings were reviewed with the patient and relevant handouts were provided if indicated.
[2025-04-11 12:41] VITALS: BP 109/55; PULSE 56; RESP 16; TEMP 36.5; O2SAT 95
[2025-04-11 12:56] VITALS: BP 109/55; PULSE 56; RESP 16; TEMP 36.5; O2SAT 95
== END 2025-04-11 13:15 | disposition home or self-care (01) ==
PROVIDERS: PCP Internal Medicine; Visit Provider Internal Medicine Gastroenterology
PROC: 0DJD8ZZ Inspection of Lower Intestinal Tract, Via Natural or Artificial Opening Endoscopic (ICD-10-PCS; CPT 45378; principal; 2025-04-11 12:40)
DX: Z12.11 Encounter for screening for malignant neoplasm of colon (principal); D12.2 Benign neoplasm of ascending colon; K62.1 Rectal polyp; K57.30 Diverticulosis of large intestine without perforation or abscess without bleeding; K64.0 First degree hemorrhoids; E11.9 Type 2 diabetes mellitus without complications; Z79.4 Long term (current) use of insulin
CPT/HCPCS: 45380; 82947; 88305; J2003; J2704

== ENCOUNTER → 2025-04-11 10:23 | Outpatient (BNV) | payer OTHER, SELFPAY | PROVIDERS: PCP Internal Medicine; Visit Provider Internal Medicine Gastroenterology | DX: Z12.11 Encounter for screening for malignant neoplasm of colon (principal); D12.2 Benign neoplasm of ascending colon; D12.8 Benign neoplasm of rectum; K57.30 Diverticulosis of large intestine without perforation or abscess without bleeding; K64.0 First degree hemorrhoids | CPT/HCPCS: 45380 ==

== ENCOUNTER 2025-04-30 10:56 | Outpatient (AMB) | payer OTHER, MEDICAID, SELFPAY ==
--- NOTE | 2025-04-30 10:59 | A.OFFPC_ITS ---
Vital Signs 04/30/25 11:00 Height 5 ft 6 in Weight 180 lb BMI 29.0 BP 122/70 Blood Pressure Location Rt brachial Position Sitting Pulse 62 Pulse Source Pulse Oximeter Pulse Oximetry (%) 97 Intake Visit Reasons: Annual PE - see comments Allergies diphenhydramine (From Benadryl) Allergy (Verified 04/30/25 11:01) anxious Medication List - Last Reconciled 04/30/25 by Tejinder Lara MD [Accu-check guide lancets Check blood sugar 3 times daily As directed] albuterol sulfate 90 mcg/actuation (Ventolin HFA) 2 puffs inhalation Q4-6H PRN albuterol sulfate 2.5 mg (3 mL) inhalation Q6H alcohol swabs (Alcohol Wipes) 1 pad topical .three times daily atorvastatin 80 mg PO QPM 90 days blood sugar diagnostic (Accu-Chek Guide test strips) Check blood sugar 3 times daily as directed blood-glucose meter (Accu-Chek Guide Glucose Meter) Check blood sugar 3 times daily as directed lisinopril 20 mg PO BID 90 days metformin 1,000 mg PO BID 90 days metoprolol tartrate 50 mg PO BID 90 days pen needle, diabetic (BD Ultra-Fine Mini Pen Needle) As directed Toujeo SoloStar U-300 Insulin (insulin glargine U-300 conc) 40 units (0.1333 mL) subcut DAILY 90 days NS Tobacco use date assessed: 02/15/25 Fall risk assessment: No Falls in past year Last assessed Fall Risk: 04/30/25 Dental Screening Dental Screen Date: 11/13/24 HPI Annual PE - see comments HPI Details History of Present Illness The patient is a 69-year-old female presenting for routine monitoring and physical examination. Type 2 Diabetes Mellitus with elevated HbA1c: - Noted A1c level was 8.0 in February, hig her than the target of less than 7.0. - The patient checks blood glucose level s at home frequently but did not bring the log. - The specific glucose readings at home were not provided. Essential Hypertension: - Patient records her blood pressure at home regularly. - Current blood pressure was noted to be stable during the visit. Hyperlipidemia: - Patient is prescribed atorvastatin for management. Medical History: - Type 2 Diabetes Mellitus - Essential Hypertension - Hyperlipidemia Health Maintenance - Mammogram in February was normal. - Recent Pap smear performed in April. Medications - Atorvastatin 80 mg for hyperlipidemia - Lisinopril 20 mg twice daily for hyper tension - Metformin 1 g twice daily for Type 2 D iabetes - Metoprolol 50 mg twice daily for hyper tension - Long-acting insulin 40 units daily for Type 2 Diabetes Patient Instructions - Continue monitoring blood pressure and blood sugar at home; bring logs next visit. - Return in three months for a follow-up and bring blood pressure and glucose monitoring machines. - An order for blood testing will be [facility] next visit. Review of Systems - General: No fever no chills - Neurological: No headaches no dizzin ess - Ear nose throat: No sore throat no hearing difficulty no ear pain - Cardiovascular: No syncope, no chest pain, no palpitations - Gastrointestinal: No nausea vomiting or diarrhea - Endocrine: No polyuria polydipsia no heat intolerance - Genitourinary: No dysuria - Skin: No new complaints Physical Exam General: Cooperative, healthy appearing, comfortable, no acute distress Orientation: Patient oriented x3 Head: Normal to inspection Ears: Within normal limit visually, no problem in the ears Nose: Normal external nose present Face and sinus: Normal facial exam Eyes: Appearance normal, extraocular movement intact pupils reactive Neck: Normal visual inspection and supple, thyroid checked Respiratory: Normal respiratory effort and able to speak in complete sentences. Clear to auscultation, no stridor Cardiovascular: S1 and S2 RRR, Breast exam declined GI: Normal to inspection. Soft to palpation and nontender Skin: Turgor normal, no acute findings Neuro: Patient oriented x3, motor sensory intact, balance intact, tandem pass, Extremities: Normal to inspection, ROM intact . [facility] Medical History Hypertension, essential Diabetes Intermittent asthma CAD (coronary artery disease) Surgical History H/O colonoscopy (~2017) History of heart artery stent (~2014) History of hysterectomy (~1997) Family History Father Hypertension Diabetes Mother Diabetes Hypertension Brother Mental health disorder Social History Housing: House Are you a primary director critical care to a significant other at home: No Do you presently have visiting nurse or other home services: No Patient Tobacco Use Status: Never used Tobacco e-Cigarette/Vaping Use: Never Used service: No Current occupational status: unemployed Cognitive needs: No Hearing needs: No Vision needs: Yes Questionnaire Thrive Questionnaire Date Thrive assessed: 07/27/24 I am a: Patient What is your living situation today?: I have a steady place to live Within the past 12 months, did the food you bought not last and you didn't have the money to get more?: I choose not to answer this question Within the past 12 months, did you worry whether your food would run out before you got money to buy more?: I choose not to answer this question Do you have trouble paying for medicines?: No Do you have trouble getting transportation to medical appointments?: No Do you have trouble paying your heating and electricity bill?: No Do you have trouble taking care of your child, family member or friend?: No Do you have trouble with day-to-day activities such as bathing, preparing meals, shopping, managing finances, etc.?: No Are you currently unemployed and looking for a job?: No Are you interested in more education?: No Please select the resources that you would like help with: None Currently or been in a relationship where the following occur: I choose not to answer THRIVE Score: 0 JÚNIOR-7 AMB Questionnaire JÚNIOR-7 Date JÚNIOR - 7 assessed: 07/27/24 Source: Developed by Drs. Martin Harris, Brook Cunningham, Angel Delarosa and colleagues, with an educational yessica from [employer]. Physical exam (Primary Care) Vital Signs: Last Vital Signs Pulse 62 04/30/25 11:00 BP 122/70 04/30/25 11:00 Pulse Ox 97 04/30/25 11:00 BMI result Body Mass Index 29.0 Tobacco/Smoking Status: Tobacco use Status Tobacco use date assessed 02/15/25 04/30/25 11:00 Patient Tobacco Use Status Never used Tobacco 04/30/25 11:00 e-Cigarette/Vaping Use Never Used 04/30/25 11:00 Thrive Assessment: Date of Thrive Assessment Date Thrive assessed 07/27/24 04/30/25 11:00 Currently or been in a relationship where the following occur: I choose not to answer Coding Level of Care Code Est Pt Level 3 (85213) Est Pt Prev Care >65y(94603) Diagnoses Encounter for general adult medical examination with abnormal findings Z00.01 Type 1 diabetes mellitus with other specified complication E10.69 Diabetes mellitus complication status: with other specified complication Hypertension, essential I10 Lipid disorder E78.9 Assessment & Plan Assessment & Plan (1) Encounter for general adult medical examination with abnormal findings: Code(s): Z00.01 - Encounter for general adult medical examination with abnormal findings Category: Medical (2) Insulin dependent type 1 diabetes mellitus: Code(s): E10.9 - Type 1 diabetes mellitus without complications Category: Medical Qualifiers: Diabetes mellitus complication status: with other specified complication Qualified Code(s): E10.69 - Type 1 diabetes mellitus with other specified complication (3) Hypertension, essential: Code(s): I10 - Essential (primary) hypertension Category: Medical (4) Lipid disorder: Code(s): E78.9 - Disorder of lipoprotein metabolism, unspecified Category: Medical Plan Type 2 Diabetes Mellitus with elevated HbA1c: - Noted A1c level was 8.0 in February, higher than the target of less than 7.0. - The patient checks blood glucose levels at home frequently but did not bring the log. - The specific glucose readings at home were not provided. Essential Hypertension: - Patient records her blood pressure at home regularly. - Current blood pressure was noted to be stable during the visit. Hyperlipidemia: - Patient is prescribed atorvastatin for management. Medical History: - Type 2 Diabetes Mellitus - Essential Hypertension - Hyperlipidemia Health Maintenance - Mammogram in February was normal. - Recent Pap smear performed in April. Medications - Atorvastatin 80 mg for hyperlipidemia - Lisinopril 20 mg twice daily for hypertension - Metformin 1 g twice daily for Type 2 Diabetes - Metoprolol 50 mg twice daily for hypertension - Long-acting insulin 40 units daily for Type 2 Diabetes Patient Instructions - Continue monitoring blood pressure and blood sugar at home; bring logs next visit. - Return in three months for a follow-up and bring blood pressure and glucose monitoring machines. - An order for blood testing will be needed next visit. . Orders: Orders Hemoglobin A1c 3 Months E10.69 - Type 1 diabetes mellitus with other specified complication, E78.9 - Disorder of lipoprotein metabolism, unspecified, I10 - Essential (primary) hypertension, Z00.01 - Encounter for general adult medical examination with abnormal findings Complete Blood Count Auto Diff 3 Months E10.69 - Type 1 diabetes mellitus with other specified complication, E78.9 - Disorder of lipoprotein metabolism, unspecified, I10 - Essential (primary) hypertension, Z00.01 - Encounter for general adult medical examination with abnormal findings Microalbumin, Random (w Creat) 3 Months E10.69 - Type 1 diabetes mellitus with other specified complication, E78.9 - Disorder of lipoprotein metabolism, unspecified, I10 - Essential (primary) hypertension, Z00.01 - Encounter for general adult medical examination with abnormal findings Comprehensive Met. Panel 3 Months E10.69 - Type 1 diabetes mellitus with other specified complication, E78.9 - Disorder of lipoprotein metabolism, unspecified, I10 - Essential (primary) hypertension, Z00.01 - Encounter for general adult medical examination with abnormal findings LDL Cholesterol Direct 3 Months E10.69 - Type 1 diabetes mellitus with other specified complication, E78.9 - Disorder of lipoprotein metabolism, unspecified, I10 - Essential (primary) hypertension, Z00.01 - Encounter for general adult medical examination with abnormal findings
[2025-04-30 11:00] VITALS: BP 122/70; PULSE 62; O2SAT 97; BMI 29.0
--- OUTSIDE RECORDS SUMMARY | 2025-04-30 13:42 | XMS_ITS | Clinical Summary ---
Author Organization [employer] Address [address] [place] [address] [address] [place] [address] Care Team Providers Care Manager Recovery Name Role Phone Unavailable Primary Care Provider [...] patient's age to complete this topic Insurance [facility] DUAL COMPLETE
== END 2025-04-30 11:30 | disposition home or self-care (01) ==
LOC: HO.HMCC 10:57
PROVIDERS: PCP Internal Medicine; Visit Provider Internal Medicine
DX: Z00.01 Encounter for general adult medical examination with abnormal findings (principal); E10.69 Type 1 diabetes mellitus with other specified complication; I10 Essential (primary) hypertension; E78.9 Disorder of lipoprotein metabolism, unspecified